=== PATIENT | male | born 1955 | race American Indian/Alaskan Native ===

== ENCOUNTER 2016-04-05 09:03 | Emergency (ER) | payer MEDICARE ==
[2016-04-05 09:14] VITALS: BP 150/86
--- NOTE | 2016-04-05 10:42 | Emergency Department Report ---
[place] [facility] Chief Complaint: Skin/Abscess/Foreign Body Stated Complaint: BOIL ON BUTTUCK Time Seen by Provider: 04/05/16 10:36 History: Yes Pain, Yes Previous History, No Fever, No Purulent Drainage, No Numbness, No Foreign Body Home Medications: Previous Rx's Medication Instructions Recorded Last Taken Type ALBUTEROL Inhaler [ProAir HFA 2 puff IH QID PRN #1 inhalation 07/03/15 Unknown Rx Inhaler] AtorvaSTATin [Lipitor] 40 mg PO QHS #30 tablet 07/03/15 Unknown Rx Clopidogrel [Plavix] 75 mg PO QDAY #30 tablet 07/03/15 04/05/16 Rx Famotidine [Pepcid] 20 mg PO BID #60 tablet 07/03/15 04/05/16 Rx Ipratropium/Albuterol Sulfate 1 ampul IH Q4HR PRN #30 ampul.neb 07/03/15 Unknown Rx [Duoneb 0.5 mg-3 mg/3 ml Soln] Lisinopril [Zestril TAB] 20 mg PO BID #30 tablet 07/03/15 04/05/16 Rx Cephalexin [Keflex] 500 mg PO BID #14 capsule 04/05/16 Unknown Rx metroNIDAZOLE [Flagyl TAB] 500 mg PO Q8HR #21 tablet 04/05/16 Unknown Rx Allergies/Adverse Reactions: Allergies Allergy/AdvReac Type Severity Reaction Status Date / Time aspirin Allergy Unknown Verified 06/10/15 01:08 codeine Allergy Unknown Verified 06/10/15 01:08 Iodinated Contrast Media - Allergy Hives Verified 06/10/15 01:08 IV Dye NSAIDS (Non-Steroidal Allergy Unknown Verified 06/10/15 01:08 Anti-Inflamma ED Review of Systems ROS: Stated complaint: BOIL ON BUTTUCK Other details as noted in HPI ED Past Medical Hx - Past Medical History Previous Medical History?: Yes Hx Hypertension: No Hx Heart Attack/AMI: No Hx Congestive Heart Failure: No Hx Diabetes: No Hx Deep Vein Thrombosis: No Hx Pulmonary Embolism: No Hx Liver Disease: No Hx Renal Disease: No Hx Sickle Cell Disease: No Hx Arthritis: No Hx Seizures: No Hx Kidney Stones: No Hx Asthma: No Hx COPD: Yes Hx Tuberculosis: No Hx Dementia: No Hx HIV: No Additional medical history: ulcers/peptic ulcer disease. rhabdo, high cholesterol, boil, abscess - Surgical History Past Surgical History?: Yes Hx Coronary Stent: No Hx Open Heart Surgery: No Hx Pacemaker: No Hx Internal Defibrillator: No Hx Cholecystectomy: No Hx Appendectomy: No Hx Breast Surgery: No Additional Surgical History: L4-L5 disc replacement - Social History Smoking Status: Former Smoker Substance Use Type: Alcohol, Prescribed - Medications Home Medications: Home Medications Medication Instructions Recorded Confirmed Last Taken Type ALBUTEROL Inhaler [ProAir HFA 2 puff IH QID PRN #1 inhalation 07/03/15 Unknown Rx Inhaler] AtorvaSTATin [Lipitor] 40 mg PO QHS #30 tablet 07/03/15 Unknown Rx Clopidogrel [Plavix] 75 mg PO QDAY #30 tablet 07/03/15 04/05/16 04/05/16 Rx Famotidine [Pepcid] 20 mg PO BID #60 tablet 07/03/15 04/05/16 Rx Ipratropium/Albuterol Sulfate 1 ampul IH Q4HR PRN #30 ampul.neb 07/03/15 Unknown Rx [Duoneb 0.5 mg-3 mg/3 ml Soln] Lisinopril [Zestril TAB] 20 mg PO BID #30 tablet 07/03/15 04/05/16 04/05/16 Rx Cephalexin [Keflex] 500 mg PO BID #14 capsule 04/05/16 Unknown Rx metroNIDAZOLE [Flagyl TAB] 500 mg PO Q8HR #21 tablet 04/05/16 Unknown Rx ED Abscess Boil Physical Exam - Exam General: Vital signs noted. No distress. Alert and acting appropriately. Size: 1 cm Exam: Yes Tenderness, No Fluctuance, No Surrounding Cellulites/Erythema, No Lymphangitis Exam: 1 cm abscess it's non-indurated and very tender non-erythematous located in the cleft of the gluteal. There is no noticeable discharge. ED Course Vital Signs 04/05/16 09:10 Temperature 97.6 F Pulse Rate 72 Blood Pressure 150/86 O2 Sat by Pulse 100 Oximetry Critical care attestation.: If time is entered above; I have spent that time in minutes in the direct care of this critically ill patient, excluding procedure time. ED Medical Decision Making - Medical Decision Making Patient evaluated by this provider in fast track. Upon my exam of this possible abscess it was noted that the abscess lays deep there is no erythematous is non-indurated. Discussed with patient that antibiotics would be the best route at this point. Once he's completed the antibiotics and the abscess has become more fluctuant and we then can drain it. Also recommend patient to either follow-up with surgery for possible marsupialization. She verbalized understanding ED Disposition Clinical Impression: Pilonidal cyst Disposition: DISCHARGED TO HOME OR SELFCARE Is pt being admited?: No Does the pt Need Aspirin: No Condition: Stable Instructions: Cellulitis (ED) Additional Instructions: Complete all antibiotics. Warm hot baths with Epson salt. Follow-up with your primary care provider. Prescriptions: metroNIDAZOLE [Flagyl TAB] 500 mg PO Q8HR #21 tablet Cephalexin [Keflex] 500 mg PO BID #14 capsule Referrals: JACKY COOPER JR, MD [Primary Care Provider] - 3-5 Days LAXMI BETANCOURT MD [Staff Physician] - 3-5 Days Forms: Work/School Release Form(ED)
[2016-04-05] MEDS ORDERED: KEFLEX PO ONE (11:04)
== END 2016-04-05 11:12 | disposition home or self-care (01) ==
LOC: ED 09:03
DX: L05.01 Pilonidal cyst with abscess (principal); J44.9 Chronic obstructive pulmonary disease, unspecified; E78.00 Pure hypercholesterolemia, unspecified; Z87.891 Personal history of nicotine dependence; Z88.6 Allergy status to analgesic agent; Z88.5 Allergy status to narcotic agent; Z88.8 Allergy status to other drugs, medicaments and biological substances
CPT/HCPCS: 99282

== ENCOUNTER 2016-08-01 00:22 | Emergency (ER) | payer MEDICARE ==
[2016-08-01 00:36] VITALS: BP 167/94
[2016-08-01 01:00] LABS: Hematocrit 41.7 % (35.5-45.6); Hemoglobin 13.6 gm/dl (11.8-15.2); Mean Corpuscular HGB Conc 33 % (32-34); Mean Corpuscular Hemoglobin 30 pg (28-32); Mean Corpuscular Volume 92 fl (84-94); Red Blood Count 4.52 M/mm3 (3.65-5.03); Red Cell Distribution Width 14.8 % (13.2-15.2); White Blood Count 5.2 K/mm3 (4.5-11.0)
[2016-08-01 01:04] LABS: Platelet Count 116 K/mm3 (140-440)
[2016-08-01 01:10] LABS: INR 0.98 (0.87-1.13)
[2016-08-01 01:11] LABS: Partial Thromboplastin Time 27.8 Sec. (24.2-36.6)
[2016-08-01 01:17] LABS: Anion Gap 20 mmol/L; Blood Urea Nitrogen 7 mg/dL (9-20); Calcium 8.8 mg/dL (8.4-10.2); Carbon Dioxide 23 mmol/L (22-30); Chloride 101.5 mmol/L (98-107); Glucose 117 mg/dL (75-100); Potassium 3.8 mmol/L (3.6-5.0); Sodium 141 mmol/L (137-145)
[2016-08-01 02:31] LABS: Blastocytes % (Manual) 0 %
[2016-08-01 02:52] LABS: Diff Status Complete; Giant Platelets Few; Large Platelets 1+; Platelet Estimate Appears Decreased
--- NOTE | 2016-08-05 07:23 | ED Elopement Review ---
ED Pt Elopement review - Results review Lab results: Laboratory Tests 08/01/16 08/01/16 08/01/16 00:39 00:39 00:39 WBC 5.2 RBC 4.52 Hgb 13.6 Hct 41.7 MCV 92 MCH 30 MCHC 33 RDW 14.8 Plt Count 116 L Add Manual Diff Complete Total Counted 100 Seg Neutrophils % Project Director Seg Neuts % (Manual) 32.0 L Band Neutrophils % 0 Lymphocytes % (Manual) 48.0 H Reactive Lymphs % (Man) 0 Monocytes % (Manual) 16.0 H Eosinophils % (Manual) 3.0 Basophils % (Manual) 1.0 Metamyelocytes % 0 Myelocytes % 0 Promyelocytes % 0 Blast Cells % 0 Nucleated RBC % Not Reportable Seg Neutrophils # Man 1.7 L Band Neutrophils # 0.0 Lymphocytes # (Manual) 2.5 Abs React Lymphs (Man) 0.0 Monocytes # (Manual) 0.8 Eosinophils # (Manual) 0.2 Basophils # (Manual) 0.1 Metamyelocytes # 0.0 Myelocytes # 0.0 Promyelocytes # 0.0 Blast Cells # 0.0 WBC Morphology Not Reportable Hypersegmented Neuts Not Reportable Hyposegmented Neuts Not Reportable Hypogranular Neuts Not Reportable Smudge Cells Not Reportable Toxic Granulation Not Reportable Toxic Vacuolation Not Reportable Dohle Bodies Not Reportable Pelger-Huet Anomaly Not Reportable Crystal Rods Not Reportable Platelet Estimate Appears decreased Clumped Platelets Not Reportable Plt Clumps, EDTA Not Reportable Large Platelets 1+ Giant Platelets Few Platelet Satelliting Not Reportable Plt Morphology Comment Not Reportable RBC Morphology Not Reportable Dimorphic RBCs Not Reportable Polychromasia Not Reportable Hypochromasia Not Reportable Poikilocytosis Not Reportable Anisocytosis Not Reportable Microcytosis Not Reportable Macrocytosis Not Reportable Spherocytes Not Reportable Pappenheimer Bodies Not Reportable Sickle Cells Not Reportable Target Cells Not Reportable Tear Drop Cells Not Reportable Ovalocytes Not Reportable Helmet Cells Not Reportable Zhang-Turlock Bodies Not Reportable [place] Rings Not Reportable [place] Cells Not Reportable Bite Cells Not Reportable Crenated Cell Not Reportable Elliptocytes Not Reportable Acanthocytes (Spur) Not Reportable Rouleaux Not Reportable Hemoglobin C Crystals Not Reportable Schistocytes Not Reportable Malaria parasites Not Reportable Yonathan Bodies Not Reportable Hem Pathologist Commnt No PT 12.9 INR 0.98 APTT 27.8 VBG pH Sodium 141 Potassium 3.8 Chloride 101.5 Carbon Dioxide 23 Anion Gap 20 BUN 7 L Creatinine 0.7 L Estimated GFR > 60 BUN/Creatinine Ratio 10.00 Glucose 117 H Calcium 8.8 Magnesium Troponin T < 0.010 NT-Pro-B Natriuret Pep 08/01/16 08/01/16 08/01/16 00:39 00:39 00:44 WBC RBC Hgb Hct MCV MCH MCHC RDW Plt Count Add Manual Diff Total Counted Seg Neutrophils % Seg Neuts % (Manual) Band Neutrophils % Lymphocytes % (Manual) Reactive Lymphs % (Man) Monocytes % (Manual) Eosinophils % (Manual) Basophils % (Manual) Metamyelocytes % Myelocytes % Promyelocytes % Blast Cells % Nucleated RBC % Seg Neutrophils # Man Band Neutrophils # Lymphocytes # (Manual) Abs React Lymphs (Man) Monocytes # (Manual) Eosinophils # (Manual) Basophils # (Manual) Metamyelocytes # Myelocytes # Promyelocytes # Blast Cells # WBC Morphology Hypersegmented Neuts Hyposegmented Neuts Hypogranular Neuts Smudge Cells Toxic Granulation Toxic Vacuolation Dohle Bodies Pelger-Huet Anomaly Crystal Rods Platelet Estimate Clumped Platelets Plt Clumps, EDTA Large Platelets Giant Platelets Platelet Satelliting Plt Morphology Comment RBC Morphology Dimorphic RBCs Polychromasia Hypochromasia Poikilocytosis Anisocytosis Microcytosis Macrocytosis Spherocytes Pappenheimer Bodies Sickle Cells Target Cells Tear Drop Cells Ovalocytes Helmet Cells Zhang-Turlock Bodies Clayton Rings Jl Cells Bite Cells Crenated Cell Elliptocytes Acanthocytes (Spur) Rouleaux Hemoglobin C Crystals Schistocytes Malaria parasites Yonathan Bodies Hem Pathologist Commnt PT INR APTT VBG pH 7.448 H Sodium Potassium Chloride Carbon Dioxide Anion Gap BUN Creatinine Estimated GFR BUN/Creatinine Ratio Glucose Calcium Magnesium 2.00 Troponin T NT-Pro-B Natriuret Pep 478.8 - Call Back decision Pt Call Back Decision: No action required
== END 2016-08-01 03:03 | disposition left against medical advice (07) ==
LOC: ED 00:22
DX: R07.9 Chest pain, unspecified (principal); R11.0 Nausea; R51 Headache; Z53.21 Procedure and treatment not carried out due to patient leaving prior to being seen by health care provider
CPT/HCPCS: 36415; 80048; 82805; 83735; 83880; 84484; 85007; 85025; 85610; 85730; 93005; 93010

== ENCOUNTER 2017-07-26 13:32 | Inpatient (IN) | payer MEDICARE ==
--- NOTE | 2017-07-26 13:56 | Cat Scan Report ---
CT HEAD WITHOUT CONTRAST: HISTORY: Neurological deficit. TECHNIQUE: Sequential 2.5mm CT images. COMPARISON: none. FINDINGS: Cerebral Parenchyma: Within normal limits. Cerebellum: Within normal limits. Brainstem: Within normal limits. Ventricles: Normal. Sella: Normal. Extra-axial spaces: Normal. Basal Cisterns: Normal. Intracranial Hemorrhage: None. Midline Shift: None. Calvarium: Normal. Sinuses: Normal. Mastoid Air Cells: Normal. Visualized Orbits: Normal. IMPRESSION: Cranial CT scan within normal limits. These findings were discussed with Dr. Aggarwal in the emergency department at 1347 hrs.
[2017-07-26 14:15] LABS: Basophils % (Auto) 0.4 % (0.0-1.8); Eosinophils % (Auto) 0.4 % (0.0-4.3); Hematocrit 51.2 % (35.5-45.6); Hemoglobin 16.9 gm/dl (11.8-15.2); Lymphocytes % (Auto) 14.3 % (13.4-35.0); Mean Corpuscular HGB Conc 33 % (32-34); Mean Corpuscular Hemoglobin 31 pg (28-32); Mean Corpuscular Volume 95 fl (84-94); Monocytes % (Auto) 7.9 % (0.0-7.3); Platelet Count 77 K/mm3 (140-440); Red Blood Count 5.37 M/mm3 (3.65-5.03)
[2017-07-26] MEDS ORDERED: MORPHINE IV ONE (14:15)
[2017-07-26] MEDS ORDERED: ZOFRAN IV ONE (14:15)
[2017-07-26 14:16] LABS: Lymphocytes # (Auto) 0.9 K/mm3 (1.2-5.4); Monocytes # (Auto) 0.5 K/mm3 (0.0-0.8)
[2017-07-26 14:18] LABS: INR 0.95 (0.87-1.13)
[2017-07-26 14:19] LABS: Partial Thromboplastin Time 24.7 Sec. (24.2-36.6)
[2017-07-26 14:30] LABS: BUN/Creatinine Ratio 6; Blood Urea Nitrogen 4 mg/dL (9-20); Calcium 9.1 mg/dL (8.4-10.2); Hemolysis Index 37
[2017-07-26] MEDS ORDERED: DECADRON IV ONE (14:49)
[2017-07-26] MEDS ORDERED: BENADRYL IV ONE (14:49)
[2017-07-26 15:34] LABS: Alanine Aminotransferase 55 units/L (7-56); Albumin 3.3 g/dL (3.9-5)
[2017-07-26 15:35] LABS: Bilirubin,Direct < 0.2 mg/dL (0-0.2)
--- NOTE | 2017-07-26 15:39 | Cat Scan Report ---
CTA HEAD: HISTORY: Headache, vomiting. TECHNIQUE: Helical CT images after IV contrast with 0.625mm reformations. Sagittal and coronal reformats. Rotational MIP images. 3D volume rendering technique. NASCET criteria were utilized. FINDINGS: The arterial structures of the anterior and posterior circulations are patent throughout. No evidence for stenosis, occlusion or aneurysm. IMPRESSION: Unremarkable CTA head.
--- NOTE | 2017-07-26 15:46 | History and Physical Report ---
History of Present Illness Chief complaint: I feel dizzy, my head hurts History of present illness: 61 YO Male with COPD, PUD, HLD presents to ED for evaluation. Pt states that he has experienced intermittent headaches for the past 2 weeks, with worsening symptoms over the past 2 days. Pt unable to provide further detailed history, but history provided by who is at bedside during exam and interview. As per , the patient awoke from sleep and was weak and confused this morning. Pt was nauseated, and experienced two episodes of vomiting. No reports of fever , chills, CP, Palpitations, Syncope, loss of bowel and bladder continence, unintentional weight loss, night sweats, unilateral leg swelling, calf pain, hemoptysis, individual/family history of DVT/PE. EMS notified, and upon arrival pt found to have symptoms consistent with CVA. Code stroke called, and patient transported to [facility] for further care and evaluation. Pt seen and evaluated in ED and found to have symptoms of CVA. Pt outside therapeutic window for TPA. Pt admitted to telemetry. Past History Past Medical History: COPD, hyperlipidemia, other (PUD) Past Surgical History: Other (Back surgery) Social history: , lives with family. denies: smoking, alcohol abuse, prescription drug abuse Family history: hypertension Medications and Allergies Allergies Allergy/AdvReac Type Severity Reaction Status Date / Time aspirin Allergy Unknown Verified 06/10/15 01:08 codeine Allergy Unknown Verified 06/10/15 01:08 Iodinated Contrast- Oral and Allergy Hives Verified 06/10/15 01:08 IV Dye NSAIDS (Non-Steroidal Allergy Unknown Verified 06/10/15 01:08 Anti-Inflamma Home Medications Medication Instructions Recorded Confirmed Last Taken Type Famotidine [Pepcid] 20 mg PO BID #60 tablet 07/03/15 04/05/16 Rx Lisinopril [Zestril TAB] 20 mg PO BID #30 tablet 07/03/15 04/05/16 04/05/16 Rx Metoprolol Tartrate 25 mg PO BID 07/26/17 07/26/17 07/26/17 History Review of Systems Constitutional: weakness, other (headache,dizziness, blurred vision), no weight loss, no weight gain, no fever, no chills Ears, nose, mouth and throat: no ear pain, no ear discharge, no tinnitis, no decreased hearing, no nose pain, no nasal congestion Cardiovascular: no chest pain, no orthopnea, no palpitations, no rapid/ irregular heart beat, no edema, no syncope Respiratory: no cough, no cough with sputum, no excessive sputum, no hemoptysis , no shortness of breath Gastrointestinal: nausea, vomiting, no change in bowel habits, no hematemesis, no coffee ground emesis, no BRBPR, no melena, no hematochezia, no loss of appetite, no early satiety Genitourinary Male: no hematuria, no flank pain, no discharge, no urinary frequency, no urinary hesitancy Rectal: no pain, no incontinence, no bleeding Musculoskeletal: no neck stiffness, no neck pain, no shooting arm pain, no arm numbness/tingling, no low back pain Integumentary: no rash, no pruritis, no redness, no sores, no wounds, no jaundice Neurological: no head injury, no transient paralysis, no paralysis, no weakness , no parathesias, no numbness, no tingling, no seizures Psychiatric: no anxiety, no memory loss, no change in sleep habits, no sleep disturbances, no insomnia, no hypersomnia, no change in appetite, no change in libido Endocrine: no cold intolerance, no heat intolerance, no polyphagia, no excessive thirst, no polydipsia, no polyuria, no nocturia Hematologic/Lymphatic: no easy bruising, no easy bleeding, no lymphadenopathy, no lymphedema Allergic/Immunologic: no urticaria, no allergic rhinitis, no wheezing, no persistent infections, no anaphylaxis Exam - Constitutional Vitals: Temp Pulse Resp BP Pulse Ox 98.2 F 97 H 18 155/82 98 07/26/17 14:27 07/26/17 14:27 07/26/17 14:55 07/26/17 14:27 07/26/17 14:28 General appearance: Present: mild distress - EENT Eyes: Present: PERRL ENT: hearing intact, clear oral mucosa - Neck Neck: Present: supple, normal ROM - Respiratory Respiratory effort: labored Respiratory: bilateral: diminished, rhonchi - Cardiovascular Heart Sounds: Present: S1 & S2. Absent: rub, click - Extremities Extremities: pulses symmetrical, No edema Peripheral Pulses: within normal limits - Abdominal General gastrointestinal: Present: soft, non-tender, non-distended, normal bowel sounds Male genitourinary: Present: normal - Integumentary Integumentary: Present: clear, warm, dry - Musculoskeletal Musculoskeletal: generalized weakness - Psychiatric Psychiatric: appropriate mood/affect, intact judgment & insight - Neurologic Neurologic: CNII-XII intact, moves all extremities, no gait normal Results - Labs CBC & Chem 7: 07/26/17 13:53 07/26/17 13:53 Labs: Abnormal lab results 07/26/17 07/26/17 07/26/17 Range/Units 13:53 13:53 14:47 RBC 5.37 H (3.65-5.03) M/mm3 Hgb 16.9 H (11.8-15.2) gm/dl Hct 51.2 H (35.5-45.6) % MCV 95 H (84-94) fl RDW 13.0 L (13.2-15.2) % Plt Count 77 L (140-440) K/mm3 [place] % (Auto) 7.9 H (0.0-7.3) % Lymph # 0.9 L (1.2-5.4) K/mm3 Seg Neutrophils % 77.0 H (40.0-70.0) % Carbon Dioxide 20 L (22-30) mmol/L BUN 4 L (9-20) mg/dL Creatinine 0.7 L (0.8-1.5) mg/dL Glucose 107 H (75-100) mg/dL AST 70 H (5-40) units/L Albumin 3.3 L (3.9-5) g/dL Assessment and Plan - Patient Problems (1) CVA (cerebral vascular accident) Current Visit: Yes Status: Acute Qualifiers: Precerebral and cerebral artery: other cerebral artery Plan to address problem: Stroke protocol: CT head, CTA Brain, MRI Brain, MRA Brain, Neuro checks,Carotid Doppler, EEG, Echo, PT/OT/Speech Therapy. Will also check PSA level (2) Encephalopathy Current Visit: Yes Status: Acute Plan to address problem: Hypertensive Encephalopathy: CT Head, Neuro checks, BMP, monitor bp q shift, (3) Hypertensive urgency Current Visit: Yes Status: Acute Plan to address problem: Monitor BP q shift, permissive hypertension overnight. IV hydralazine prn (4) DVT prophylaxis Current Visit: No Status: Acute Plan to address problem: SCD to BLE while in bed,
[2017-07-26] MEDS ORDERED: PHENERGAN PR PRN (15:47)
[2017-07-26] MEDS ORDERED: TYLENOL PO PRN (15:47)
[2017-07-26] MEDS ORDERED: REGLAN PO PRN (15:47)
[2017-07-26] MEDS ORDERED: DULCOLAX PR PRN (15:47)
[2017-07-26] MEDS ORDERED: MILK OF MAGNESIA PO PRN (15:47)
[2017-07-26] MEDS ORDERED: SODIUM CHLORIDE FLUSH SYRINGE 10 ML IV PRN (15:47)
[2017-07-26] MEDS ORDERED: ZOFRAN IV PRN (15:47)
[2017-07-26] MEDS ORDERED: DUONEB *Not for PRN Use IH (15:49)
[2017-07-26] MEDS ORDERED: PROAIR IH PRN (15:49)
--- NOTE | 2017-07-26 15:55 | Emergency Department Report ---
ED General Adult HPI - General Chief complaint: Headache Stated complaint: POSSIBLE CVA Time Seen by Provider: 07/26/17 14:12 Source: patient, EMS Mode of arrival: Ambulatory Limitations: No Limitations - History of Present Illness Initial comments: This is a 61-year-old male who states he's had severe headaches for the past 2 weeks. Approximately one week ago he states he saw his family physician who "didn't find anything wrong". The patient was not prescribed anything per se for headaches he states. He has not really been taking anything over-the- counter. He vomited twice earlier today and had a recurrent headache which was 10 out of 10 and he called EMS. -: Gradual, week(s) Location: head Radiation: non-radiation Quality: aching Consistency: intermittent Improves with: none Worsens with: none Associated Symptoms: nausea/vomiting Treatments Prior to Arrival: none - Related Data Previous Rx's Medication Instructions Recorded Last Taken Type ALBUTEROL Inhaler [ProAir HFA 2 puff IH QID PRN #1 inhalation 07/03/15 Unknown Rx Inhaler] AtorvaSTATin [Lipitor] 40 mg PO QHS #30 tablet 07/03/15 Unknown Rx Clopidogrel [Plavix] 75 mg PO QDAY #30 tablet 07/03/15 04/05/16 Rx Famotidine [Pepcid] 20 mg PO BID #60 tablet 07/03/15 04/05/16 Rx Ipratropium/Albuterol Sulfate 1 ampul IH Q4HR PRN #30 ampul.neb 07/03/15 Unknown Rx [DUONEB *Not for PRN Use*] Lisinopril [Zestril TAB] 20 mg PO BID #30 tablet 07/03/15 04/05/16 Rx Cephalexin [Keflex] 500 mg PO BID #14 capsule 04/05/16 Unknown Rx metroNIDAZOLE [Flagyl TAB] 500 mg PO Q8HR #21 tablet 04/05/16 Unknown Rx Allergies Allergy/AdvReac Type Severity Reaction Status Date / Time aspirin Allergy Unknown Verified 06/10/15 01:08 codeine Allergy Unknown Verified 06/10/15 01:08 Iodinated Contrast- Oral and Allergy Hives Verified 06/10/15 01:08 IV Dye NSAIDS (Non-Steroidal Allergy Unknown Verified 06/10/15 01:08 Anti-Inflamma ED Review of Systems ROS: Stated complaint: POSSIBLE CVA Other details as noted in HPI Constitutional: denies: chills, fever Eyes: denies: eye pain, eye discharge, vision change ENT: denies: ear pain, throat pain Respiratory: denies: cough, shortness of breath, wheezing Cardiovascular: denies: chest pain, palpitations Endocrine: no symptoms reported Gastrointestinal: denies: abdominal pain, nausea, diarrhea Genitourinary: denies: urgency, dysuria Musculoskeletal: denies: back pain, joint swelling, arthralgia Skin: denies: rash, lesions Neurological: headache. denies: weakness, numbness, paresthesias Psychiatric: denies: anxiety, depression Hematological/Lymphatic: denies: easy bleeding, easy bruising ED Past Medical Hx - Past Medical History Hx Hypertension: No Hx Heart Attack/AMI: No Hx Congestive Heart Failure: No Hx Diabetes: No Hx Deep Vein Thrombosis: No Hx Pulmonary Embolism: No Hx Liver Disease: No Hx Renal Disease: No Hx Sickle Cell Disease: No Hx Arthritis: No Hx Seizures: No Hx Kidney Stones: No Hx Asthma: No Hx COPD: Yes Hx Tuberculosis: No Hx Dementia: No Hx HIV: No Additional medical history: ulcers/peptic ulcer disease. rhabdo, high cholesterol, boil, abscess - Surgical History Hx Coronary Stent: No Hx Open Heart Surgery: No Hx Pacemaker: No Hx Internal Defibrillator: No Hx Cholecystectomy: No Hx Appendectomy: No Hx Breast Surgery: No Additional Surgical History: L4-L5 disc replacement - Social History Smoking Status: Unknown if ever smoked - Medications Home Medications: Home Medications Medication Instructions Recorded Confirmed Last Taken Type ALBUTEROL Inhaler [ProAir HFA 2 puff IH QID PRN #1 inhalation 07/03/15 Unknown Rx Inhaler] AtorvaSTATin [Lipitor] 40 mg PO QHS #30 tablet 07/03/15 Unknown Rx Clopidogrel [Plavix] 75 mg PO QDAY #30 tablet 07/03/15 04/05/16 04/05/16 Rx Famotidine [Pepcid] 20 mg PO BID #60 tablet 07/03/15 04/05/16 Rx Ipratropium/Albuterol Sulfate 1 ampul IH Q4HR PRN #30 ampul.neb 07/03/15 Unknown Rx [DUONEB *Not for PRN Use*] Lisinopril [Zestril TAB] 20 mg PO BID #30 tablet 07/03/15 04/05/16 04/05/16 Rx Cephalexin [Keflex] 500 mg PO BID #14 capsule 04/05/16 Unknown Rx metroNIDAZOLE [Flagyl TAB] 500 mg PO Q8HR #21 tablet 04/05/16 Unknown Rx ED Physical Exam - General Limitations: No Limitations ED Course Vital Signs 07/26/17 07/26/17 07/26/17 14:04 14:27 14:28 Temperature 97.6 F 98.2 F Pulse Rate 92 H 97 H Respiratory 16 18 18 Rate Blood Pressure 92/51 155/82 [Left] O2 Sat by Pulse 100 98 98 Oximetry 07/26/17 14:55 Temperature Pulse Rate Respiratory 18 Rate Blood Pressure [Left] O2 Sat by Pulse Oximetry - Reevaluation(s) Reevaluation #1: Patient with improvement of his headache with analgesia given. CTA was negative. Case was referred to Dr. Santos. The patient has had some labile blood pressure here. Dr. Santos will discuss whether or not the patient would like to be admitted for further management of his blood pressure and severe headaches. 07/26/17 16:03 ED Medical Decision Making - Lab Data Result diagrams: 07/26/17 13:53 07/26/17 13:53 Laboratory Results - last 24 hr 07/26/17 07/26/17 07/26/17 13:40 13:53 13:53 WBC 6.5 RBC 5.37 H Hgb 16.9 H Hct 51.2 H MCV 95 H MCH 31 MCHC 33 RDW 13.0 L Plt Count 77 L Lymph % (Auto) 14.3 Johnson % (Auto) 7.9 H Eos % (Auto) 0.4 Baso % (Auto) 0.4 Lymph # 0.9 L Johnson # 0.5 Eos # 0.0 Baso # 0.0 Seg Neutrophils % 77.0 H Seg Neutrophils # 5.0 ESR PT 13.1 INR 0.95 APTT 24.7 Thrombin Time Sodium Potassium Chloride Carbon Dioxide Anion Gap BUN Creatinine Estimated GFR BUN/Creatinine Ratio Glucose POC Glucose 105 Calcium Magnesium Total Bilirubin Direct Bilirubin AST ALT Alkaline Phosphatase Troponin T Total Protein Albumin Albumin/Globulin Ratio 07/26/17 07/26/17 07/26/17 13:53 13:53 13:53 WBC RBC Hgb Hct MCV MCH MCHC RDW Plt Count Lymph % (Auto) Johnson % (Auto) Eos % (Auto) Baso % (Auto) Lymph # Johnson # Eos # Baso # Seg Neutrophils % Seg Neutrophils # ESR PT INR APTT Thrombin Time 18.6 Sodium 137 Potassium 4.6 Chloride 101.6 Carbon Dioxide 20 L Anion Gap 20 BUN 4 L Creatinine 0.7 L Estimated GFR > 60 BUN/Creatinine Ratio 6 Glucose 107 H POC Glucose Calcium 9.1 Magnesium 2.00 Total Bilirubin Direct Bilirubin AST ALT Alkaline Phosphatase Troponin T < 0.010 Total Protein Albumin Albumin/Globulin Ratio 07/26/17 07/26/17 14:47 14:47 WBC RBC Hgb Hct MCV MCH MCHC RDW Plt Count Lymph % (Auto) Johnson % (Auto) Eos % (Auto) Baso % (Auto) Lymph # Johnson # Eos # Baso # Seg Neutrophils % Seg Neutrophils # ESR 7 PT INR APTT Thrombin Time Sodium Potassium Chloride Carbon Dioxide Anion Gap BUN Creatinine Estimated GFR BUN/Creatinine Ratio Glucose POC Glucose Calcium Magnesium Total Bilirubin 0.60 Direct Bilirubin < 0.2 AST 70 H ALT 55 Alkaline Phosphatase 64 Troponin T Total Protein 6.4 Albumin 3.3 L Albumin/Globulin Ratio 1.1 - Radiology Data Radiology results: report reviewed (CT the head and CTA of the head no acute process) Critical care attestation.: If time is entered above; I have spent that time in minutes in the direct care of this critically ill patient, excluding procedure time. ED Disposition Clinical Impression: Essential hypertension Cephalalgia Qualifiers: Headache type: unspecified Headache chronicity pattern: acute headache Intractability: not intractable Qualified Code(s): R51 - Headache Disposition: OP ADMIT IP TO THIS HOSP Is pt being admited?: Yes Does the pt Need Aspirin: Yes Condition: Stable Instructions: Hypertension (ED) Referrals: KAUSHIK MARK MD [Primary Care Provider] - 3-5 Days Time of Disposition: 16:05
[2017-07-26] MEDS ORDERED: PROVENTIL IH PRN (17:54)
[2017-07-26 18:54] LABS: Bacteria,Urine 1+ /HPF (Negative); Bilirubin,Urine NEG (Negative); Blood,Urine NEG (Negative); Color,Urine Yellow (Yellow); Mucus,Urine FEW /HPF; Protein,Urine <15 mg/dL mg/dL (Negative); Urobilinogen,Urine < 2.0 mg/dL (<2.0); WBC,Urine < 1.0 /HPF (0.0-6.0)
[2017-07-26 19:02] LABS: Amphetamine Screen,Urine PRESUMPTIVE NEGATIVE; Benzodiazepines Screen,Urine PRESUMPTIVE NEGATIVE; Cocaine Screen,Urine PRESUMPTIVE NEGATIVE; Methadone Screen,Urine PRESUMPTIVE NEGATIVE
[2017-07-26 19:14] LABS: Cannabinoid Screen,Urine PRESUMPTIVE POSITIVE; Opiate Screen,Urine PRESUMPTIVE POSITIVE
[2017-07-26] MEDS: PEPCID PO SCH (21:54)
[2017-07-26] MEDS: ZOFRAN IV PRN (23:55)
[2017-07-26] MEDS: MORPHINE IV PRN (23:56)
[2017-07-27] MEDS: MORPHINE IV PRN (06:12)
[2017-07-27] MEDS: ZOFRAN IV PRN (06:13)
[2017-07-27 07:32] LABS: Chol/HDL Ratio 2.1 %
[2017-07-27] MEDS ORDERED: PLAVIX PO SCH (10:00)
--- NOTE | 2017-07-27 10:16 | Progress Note ---
Hospitalist Physical - Constitutional Vitals: Temp Pulse Resp BP Pulse Ox 97.9 F 63 18 130/63 96 07/27/17 08:20 07/27/17 08:20 07/27/17 08:20 07/27/17 08:20 07/27/17 08:20 General appearance: Present: mild distress Results - Labs CBC & Chem 7: 07/26/17 13:53 07/26/17 13:53 Labs: Laboratory Last Values WBC 6.5 K/mm3 (4.5-11.0) 07/26/17 13:53 RBC 5.37 M/mm3 (3.65-5.03) H 07/26/17 13:53 Hgb 16.9 gm/dl (11.8-15.2) H 07/26/17 13:53 Hct 51.2 % (35.5-45.6) H 07/26/17 13:53 MCV 95 fl (84-94) H 07/26/17 13:53 MCH 31 pg (28-32) 07/26/17 13:53 MCHC 33 % (32-34) 07/26/17 13:53 RDW 13.0 % (13.2-15.2) L 07/26/17 13:53 Plt Count 77 K/mm3 (140-440) L 07/26/17 13:53 Lymph % (Auto) 14.3 % (13.4-35.0) 07/26/17 13:53 [place] % (Auto) 7.9 % (0.0-7.3) H 07/26/17 13:53 Eos % (Auto) 0.4 % (0.0-4.3) 07/26/17 13:53 Baso % (Auto) 0.4 % (0.0-1.8) 07/26/17 13:53 Lymph # 0.9 K/mm3 (1.2-5.4) L 07/26/17 13:53 [place] # 0.5 K/mm3 (0.0-0.8) 07/26/17 13:53 Eos # 0.0 K/mm3 (0.0-0.4) 07/26/17 13:53 Baso # 0.0 K/mm3 (0.0-0.1) 07/26/17 13:53 Seg Neutrophils % 77.0 % (40.0-70.0) H 07/26/17 13:53 Seg Neutrophils # 5.0 K/mm3 (1.8-7.7) 07/26/17 13:53 ESR 7 mm/Hr (0-20) 07/26/17 14:47 PT 13.1 Sec. (12.2-14.9) 07/26/17 13:53 INR 0.95 (0.87-1.13) 07/26/17 13:53 APTT 24.7 Sec. (24.2-36.6) 07/26/17 13:53 Thrombin Time 18.6 Sec. (15.1-19.6) 07/26/17 13:53 Sodium 137 mmol/L (137-145) 07/26/17 13:53 Potassium 4.6 mmol/L (3.6-5.0) 07/26/17 13:53 Chloride 101.6 mmol/L (98-107) 07/26/17 13:53 Carbon Dioxide 20 mmol/L (22-30) L 07/26/17 13:53 Anion Gap 20 mmol/L 07/26/17 13:53 BUN 4 mg/dL (9-20) L 07/26/17 13:53 Creatinine 0.7 mg/dL (0.8-1.5) L 07/26/17 13:53 Estimated GFR > 60 ml/min 07/26/17 13:53 BUN/Creatinine Ratio 6 % 07/26/17 13:53 Glucose 107 mg/dL (75-100) H 07/26/17 13:53 POC Glucose 105 (70-105) 07/26/17 13:40 Calcium 9.1 mg/dL (8.4-10.2) 07/26/17 13:53 Magnesium 2.00 mg/dL (1.7-2.3) 07/26/17 13:53 Total Bilirubin 0.60 mg/dL (0.1-1.2) 07/26/17 14:47 Direct Bilirubin < 0.2 mg/dL (0-0.2) 07/26/17 14:47 AST 70 units/L (5-40) H 07/26/17 14:47 ALT 55 units/L (7-56) 07/26/17 14:47 Alkaline Phosphatase 64 units/L (35-129) 07/26/17 14:47 Troponin T < 0.010 ng/mL (0.00-0.029) 07/26/17 13:53 Total Protein 6.4 g/dL (6.3-8.2) 07/26/17 14:47 Albumin 3.3 g/dL (3.9-5) L 07/26/17 14:47 Albumin/Globulin Ratio 1.1 % 07/26/17 14:47 Triglycerides 47 mg/dL (2-149) 07/27/17 06:51 Cholesterol 187 mg/dL (50-199) 07/27/17 06:51 LDL Cholesterol Direct 109 mg/dL (50-130) 07/27/17 06:51 HDL Cholesterol 89 mg/dL (40-59) H 07/27/17 06:51 Cholesterol/HDL Ratio 2.10 % 07/27/17 06:51 Prostate Specific Ag 0.65 ng/mL (0.00-4.00) 07/26/17 14:47 Urine Color Yellow (Yellow) 07/26/17 18:39 Urine Turbidity Clear (Clear) 07/26/17 18:39 Urine pH 8.0 (5.0-7.0) H 07/26/17 18:39 Ur Specific [place] 1.049 (1.003-1.030) H 07/26/17 18:39 Urine Protein <15 mg/dl mg/dL (Negative) 07/26/17 18:39 Urine Glucose (UA) Neg mg/dL (Negative) 07/26/17 18:39 Urine Ketones Neg mg/dL (Negative) 07/26/17 18:39 Urine Blood Neg (Negative) 07/26/17 18:39 Urine Nitrite Neg (Negative) 07/26/17 18:39 Urine Bilirubin Neg (Negative) 07/26/17 18:39 Urine Urobilinogen < 2.0 mg/dL (<2.0) 07/26/17 18:39 Ur Leukocyte Esterase Neg (Negative) 07/26/17 18:39 Urine WBC (Auto) < 1.0 /HPF (0.0-6.0) 07/26/17 18:39 Urine RBC (Auto) 1.0 /HPF (0.0-6.0) 07/26/17 18:39 U Epithel Cells (Auto) < 1.0 /HPF (0-13.0) 07/26/17 18:39 Urine Bacteria (Auto) 1+ /HPF (Negative) 07/26/17 18:39 Urine Mucus Few /HPF 07/26/17 18:39 Urine Opiates Screen Presumptive positive 07/26/17 18:39 Urine Methadone Screen Presumptive negative 07/26/17 18:39 Ur Barbiturates Screen Presumptive negative 07/26/17 18:39 Ur Phencyclidine Scrn Presumptive negative 07/26/17 18:39 Ur Amphetamines Screen Presumptive negative 07/26/17 18:39 U Benzodiazepines Scrn Presumptive negative 07/26/17 18:39 Urine Cocaine Screen Presumptive negative 07/26/17 18:39 U Marijuana (THC) Screen Presumptive positive 07/26/17 18:39 Drugs of Abuse Note Disclamer 07/26/17 18:39
--- NOTE | 2017-07-27 10:57 | Magnetic Resonance Report ---
MRI OF THE BRAIN WITHOUT CONTRAST: HISTORY: CVA COMPARISON: CT head dated 07/26/17. PROCEDURE: Multiplanar, multisequence MR imaging of the brain without IV contrast was performed. FINDINGS: The brain parenchyma signal intensity and its west white interface are within normal limits on all sequences. No evidence for acute ischemia, hemorrhage or mass. No chronic infarct or extra-axial fluid collection. The midline structures are central. The basal cisterns are patent. Normal ventricular size. The orbital cavities and sella turcica demonstrate no abnormality. The visualized paranasal sinuses and mastoid air cells are well aerated. IMPRESSION: Unremarkable non-enhanced MRI of the brain.
--- NOTE | 2017-07-27 10:58 | Magnetic Resonance Report ---
MRA HEAD WITHOUT CONTRAST HISTORY: Stroke. [id number] imaging with MIP reformations of the hopi of Adames is submitted. NASCET criteria were utilized. The arteries appear widely patent and free of hemodynamically significant stenosis, aneurysm or dissection. IMPRESSION: Unremarkable MRA head.
[2017-07-27 12:16] VITALS: BP 134/78
--- NOTE | 2017-07-27 14:40 | Discharge Summary ---
<WILDER CALVO - Last Filed: 07/27/17 14:35> Providers - Providers Date of Admission: 07/26/17 15:47 Attending physician: MARISELA TRIPATHI 07/26/17 15:47 Occupational Therapy Evaluate and Treat [CONS] Routine Comment: Reason For Exam: Neuro deficits Physical Therapy Evaluation and Treat [CONS] Routine Comment: Reason For Exam: Neuro deficits Primary care physician: KAUSHIK MARK Hospitalization Condition: Stable Hospital course: Admission HPI 61 YO Male with COPD, PUD, HLD presented to ED with complaints of intermittent headaches for the past 2 weeks, with worsening symptoms 2 days prior to admission Patient underwent stroke workup-head MRA, brain MRI, head CTA and head CT were all negative. Carotid Doppler showed <50% STENOSIS NOTED BILAT BY DOPPLER VELOCITIES. BILAT ANTEG. VERT FLOWS. Patient's symptoms likely associated with TIA. Patient initiated on aspirin therapy and will continue statin therapy. Patient's symptoms have resolved and he is clinically stable for discharge. He will follow up with his PCP within 1 week of discharge. Discharge Diagnoses TIA Encephalopathy Hypertension DVT prophylaxis Disposition: DC-01 TO HOME OR SELFCARE Time spent for discharge: 32 minutes Core Measure Documentation - Palliative Care Palliative Care/ Comfort Measures: Not Applicable - Core Measures Any of the following diagnoses?: none Exam - Constitutional Vitals: Temp Pulse Resp BP Pulse Ox 97.8 F 75 18 134/78 99 07/27/17 11:57 07/27/17 11:57 07/27/17 11:57 07/27/17 11:57 07/27/17 11:57 General appearance: Present: no acute distress, well-nourished - EENT Eyes: Present: PERRL ENT: hearing intact, clear oral mucosa - Neck Neck: Present: supple, normal ROM - Respiratory Respiratory effort: normal Respiratory: bilateral: CTA - Cardiovascular Heart Sounds: Present: S1 & S2. Absent: rub, click - Extremities Extremities: pulses symmetrical, No edema Peripheral Pulses: within normal limits - Abdominal General gastrointestinal: Present: soft, non-tender, non-distended, normal bowel sounds - Integumentary Integumentary: Present: clear, warm, dry - Musculoskeletal Musculoskeletal: gait normal, strength equal bilaterally - Psychiatric Psychiatric: appropriate mood/affect, intact judgment & insight - Neurologic Neurologic: CNII-XII intact, moves all extremities Plan Diet: low fat, low cholesterol, low salt Follow up with: KAUSHIK MARK MD [Primary Care Provider] - 3-5 Days Forms: Accompanied Note <MARISELA TRIPATHI - Last Filed: 07/27/17 18:16> Providers - Providers Date of Admission: 07/26/17 15:47 Date of discharge: 07/27/17 Attending physician: MARISELA TRIPATHI 07/26/17 15:47 Occupational Therapy Evaluate and Treat [CONS] Routine Comment: Reason For Exam: Neuro deficits Physical Therapy Evaluation and Treat [CONS] Routine Comment: Reason For Exam: Neuro deficits Primary care physician: KAUSHIK MARK Hospitalization Hospital course: I saw and evaluated the patient. I agree with the findings and the plan of care as documented in the Nurse Practitioner's~note, with the following corrections and additions. Patient was admitted with headache, and neurological symptoms Admitted and had extensive neuro workup Not a candidate for TPA CT head without contrast CTA head MRI MRA,Carotid Doppler studies are negative Acute CVA was ruled out Possible TIA Today patient is hemodynamically stable Already on antiplatelets and statins Neurological symptoms completely resolved Discharge the patient and follow with PCP in one week Patient is stable at DC Exam - Constitutional Vitals: Temp Pulse Resp BP Pulse Ox 97.8 F 75 18 134/78 99 07/27/17 11:57 07/27/17 11:57 07/27/17 11:57 07/27/17 11:57 07/27/17 11:57
[2017-07-27] MEDS: PEPCID PO SCH (15:55)
== END 2017-07-27 17:48 | disposition home or self-care (01) | DRG 304 ==
LOC: ED 13:32 → 4A 15:47
PROVIDERS: ADMIT Internal Medicine; ATTEND Internal Medicine
DX: I16.0 Hypertensive urgency (principal); G93.40 Encephalopathy, unspecified; G45.9 Transient cerebral ischemic attack, unspecified; M62.82 Rhabdomyolysis; R55 Syncope and collapse; E78.5 Hyperlipidemia, unspecified; J44.9 Chronic obstructive pulmonary disease, unspecified; Z87.11 Personal history of peptic ulcer disease; Z86.718 Personal history of other venous thrombosis and embolism; Z88.5 Allergy status to narcotic agent; Z88.8 Allergy status to other drugs, medicaments and biological substances; Z91.041 Radiographic dye allergy status
CPT/HCPCS: 36415; 70450; 70496; 70544; 70551; 80048; 80061; 80074; 80307; 81001; 82962; 83735; 84153; 84484; 85025; 85610; 85652; 85670; 85730; 93005; 93010; 93306; 93880; 96374; 96375; A9270-GY; J1100; J1200; J2270; J2405; Q9967

== ENCOUNTER 2017-09-21 10:22 | Emergency (ER) | payer MEDICARE ==
[2017-09-21 12:01] LABS: Hematocrit 54.6 % (35.5-45.6); Hemoglobin 18.1 gm/dl (11.8-15.2); Mean Corpuscular HGB Conc 33 % (32-34); Mean Corpuscular Hemoglobin 32 pg (28-32); Mean Corpuscular Volume 97 fl (84-94); Red Blood Count 5.61 M/mm3 (3.65-5.03)
[2017-09-21 12:02] LABS: Basophils % (Auto) 0.3 % (0.0-1.8); Eosinophils % (Auto) 0.2 % (0.0-4.3); Lymphocytes # (Auto) 0.7 K/mm3 (1.2-5.4); Lymphocytes % (Auto) 7.4 % (13.4-35.0); Monocytes # (Auto) 0.5 K/mm3 (0.0-0.8); Monocytes % (Auto) 5.6 % (0.0-7.3)
[2017-09-21 12:24] LABS: BUN/Creatinine Ratio 13; Blood Urea Nitrogen 10 mg/dL (9-20); Calcium 9.9 mg/dL (8.4-10.2); Hemolysis Index 15
[2017-09-21 12:44] LABS: Platelet Count 71 K/mm3 (140-440)
--- NOTE | 2017-09-21 14:44 | Emergency Department Report ---
ED General Adult HPI - General Chief complaint: Chest Pain Stated complaint: CHEST PAIN Time Seen by Provider: 09/21/17 14:22 Source: patient Mode of arrival: Ambulatory Limitations: No Limitations - History of Present Illness Initial comments: Patient complains of pleuritic chest plan we started yesterday. He said he also has soft throat. He says hives when he coughs. Patient said he cannot take aspirin because it holt his stomach. -: days(s) (2) Location: chest Radiation: non-radiation Severity scale (0 -10): 5 Quality: sharp Consistency: intermittent Improves with: none Worsens with: other (cough) Associated Symptoms: chest pain Treatments Prior to Arrival: none - Related Data Home Medications Medication Instructions Recorded Confirmed Last Taken Metoprolol Tartrate 25 mg PO BID 07/26/17 09/21/17 09/21/17 Lisinopril [Zestril TAB] 20 mg PO QDAY 09/21/17 09/21/17 09/21/17 Previous Rx's Medication Instructions Recorded Last Taken Type Famotidine [Pepcid] 20 mg PO BID #60 tablet 07/03/15 09/21/17 Rx Allergies Allergy/AdvReac Type Severity Reaction Status Date / Time aspirin Allergy Unknown Verified 09/21/17 10:35 codeine Allergy Unknown Verified 09/21/17 10:35 Iodinated Contrast- Oral and Allergy Hives Verified 09/21/17 10:35 IV Dye NSAIDS (Non-Steroidal Allergy Unknown Verified 09/21/17 10:35 Anti-Inflamma ED Review of Systems ROS: Stated complaint: CHEST PAIN Other details as noted in HPI Comment: All other systems reviewed and negative Constitutional: denies: chills, fever Eyes: denies: eye pain, eye discharge ENT: denies: ear pain Respiratory: cough. denies: shortness of breath Cardiovascular: chest pain. denies: palpitations, edema Endocrine: no symptoms reported Gastrointestinal: denies: abdominal pain, nausea, vomiting, diarrhea Genitourinary: denies: urgency, frequency Musculoskeletal: denies: back pain, joint swelling Skin: denies: rash, change in color Neurological: denies: headache, weakness, numbness Psychiatric: denies: anxiety, depression Hematological/Lymphatic: denies: easy bleeding, easy bruising ED Past Medical Hx - Past Medical History Hx Hypertension: Yes Hx Heart Attack/AMI: Yes Hx Congestive Heart Failure: No Hx Diabetes: No Hx Deep Vein Thrombosis: No Hx Pulmonary Embolism: No Hx Liver Disease: No Hx Renal Disease: No Hx Sickle Cell Disease: No Hx Arthritis: No Hx Seizures: No Hx Kidney Stones: No Hx Asthma: No Hx COPD: Yes Hx Tuberculosis: No Hx Dementia: No Hx HIV: No Additional medical history: ulcers/peptic ulcer disease. rhabdo, high cholesterol, boil, abscess - Surgical History Past Surgical History?: Yes Hx Coronary Stent: No Hx Open Heart Surgery: No Hx Pacemaker: No Hx Internal Defibrillator: No Hx Cholecystectomy: No Hx Appendectomy: No Hx Breast Surgery: No Additional Surgical History: L4-L5 disc replacement - Social History Smoking Status: Former Smoker Substance Use Type: Alcohol - Medications Home Medications: Home Medications Medication Instructions Recorded Confirmed Last Taken Type Famotidine [Pepcid] 20 mg PO BID #60 tablet 07/03/15 09/21/17 09/21/17 Rx Metoprolol Tartrate 25 mg PO BID 07/26/17 09/21/17 09/21/17 History Lisinopril [Zestril TAB] 20 mg PO QDAY 09/21/17 09/21/17 09/21/17 History ED Physical Exam - General Limitations: No Limitations General appearance: alert, in no apparent distress - Head Head exam: Present: atraumatic, normocephalic, normal inspection - Eye Eye exam: Present: normal appearance, PERRL, EOMI Pupils: Present: normal accommodation - ENT ENT exam: Present: normal exam, normal orophraynx, mucous membranes moist - Neck Neck exam: Present: normal inspection, full ROM. Absent: tenderness - Respiratory Respiratory exam: Present: normal lung sounds bilaterally. Absent: respiratory distress, wheezes, rhonchi - GI/Abdominal GI/Abdominal exam: Present: soft, normal bowel sounds. Absent: distended, tenderness, guarding, rebound - Extremities Exam Extremities exam: Present: normal inspection, full ROM, normal capillary refill - Back Exam Back exam: Present: normal inspection, full ROM - Neurological Exam Neurological exam: Present: alert, oriented X3, CN II-XII intact - Psychiatric Psychiatric exam: Present: normal affect, normal mood - Skin Skin exam: Present: warm, dry, intact, normal color ED Course Vital Signs 09/21/17 09/21/17 09/21/17 10:35 14:23 14:25 Temperature 98.5 F 98.1 F Pulse Rate 87 87 Respiratory 18 15 15 Rate Blood Pressure 133/83 Blood Pressure 126/75 [Left] O2 Sat by Pulse 98 97 97 Oximetry 09/21/17 09/21/17 09/21/17 18:00 19:02 21:20 Temperature 98.2 F Pulse Rate 82 91 H 95 H Respiratory 15 14 16 Rate Blood Pressure Blood Pressure 142/72 136/71 159/80 [Left] O2 Sat by Pulse 100 100 98 Oximetry - Reevaluation(s) Reevaluation #1: 09/22/17 20:23 I called in Augmentin 875 mg to [facility] pharmacy for the patient to take for his bronchitis for 10 days. 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 I advised him to return to the emergency room if his condition worsens. ED Medical Decision Making - Lab Data Result diagrams: 09/21/17 11:31 09/21/17 16:49 - EKG Data -: EKG Interpreted by Me EKG shows normal: sinus rhythm Rate: normal (86) - EKG Data When compared to previous EKG there are: previous EKG unavailable Interpretation: nonspecific ST-T wave milady - Radiology Data Radiology results: report reviewed, image reviewed - Medical Decision Making Chest pain. Bronchitis. Critical care attestation.: If time is entered above; I have spent that time in minutes in the direct care of this critically ill patient, excluding procedure time. ED Disposition Clinical Impression: Atypical chest pain Chest pain Qualifiers: Chest pain type: unspecified Qualified Code(s): R07.9 - Chest pain, unspecified Acute bronchitis Qualifiers: Bronchitis organism: unspecified organism Qualified Code(s): J20.9 - Acute bronchitis, unspecified Disposition: DC-01 TO HOME OR SELFCARE Is pt being admited?: No Does the pt Need Aspirin: No Condition: Stable Instructions: Chest Pain (ED), Acute Bronchitis (ED) Additional Instructions: Follow up with your regular doctor within 24 hours. Return to the ED if your condition worsens. Referrals: KAUSHIK MARK MD [Primary Care Provider] - 3-5 Days Forms: Accompanied Note
[2017-09-21] MEDS ORDERED: NACL 0.9% 1000 ML 1,000 ML IV ONE (14:53)
[2017-09-21 15:46] LABS: INR 0.95 (0.87-1.13)
[2017-09-21 15:47] LABS: Partial Thromboplastin Time 29.2 Sec. (24.2-36.6)
--- NOTE | 2017-09-21 15:55 | XRay Report ---
FINAL REPORT EXAM: XR CHEST ROUTINE 2V HISTORY: Chest Pain COMPARISON: None. TECHNIQUE: Frontal and lateral views of the chest. FINDINGS: The cardiomediastinal silhouette is normal in appearance. The lungs are clear without focal consolidation. There is no pleural effusion or pneumothorax. There is no acute soft tissue or osseous abnormality. IMPRESSION: No acute cardiopulmonary disease.
[2017-09-21] MEDS ORDERED: LEVAQUIN 750MG/150ML 750 MG/150 ML BAG IV ONE (16:33)
[2017-09-21 16:39] LABS: Amphetamine Screen,Urine PRESUMPTIVE NEGATIVE; Benzodiazepines Screen,Urine PRESUMPTIVE NEGATIVE; Cocaine Screen,Urine PRESUMPTIVE NEGATIVE; Methadone Screen,Urine PRESUMPTIVE NEGATIVE; Opiate Screen,Urine PRESUMPTIVE NEGATIVE
[2017-09-21 16:42] LABS: Bilirubin,Urine NEG (Negative); Blood,Urine NEG (Negative); Color,Urine Yellow (Yellow); Protein,Urine <15 mg/dL mg/dL (Negative); Sperm,Urine FEW /HPF (NP); Urobilinogen,Urine < 2.0 mg/dL (<2.0)
[2017-09-21 17:06] LABS: Cannabinoid Screen,Urine PRESUMPTIVE POSITIVE
[2017-09-21 17:27] LABS: BUN/Creatinine Ratio 17; Blood Urea Nitrogen 10 mg/dL (9-20); Calcium 8.9 mg/dL (8.4-10.2)
[2017-09-21 17:28] LABS: Hemolysis Index 23
[2017-09-21 21:21] VITALS: BP 159/80
== END 2017-09-21 21:21 | disposition home or self-care (01) ==
LOC: ED 10:22
DX: J20.9 Acute bronchitis, unspecified (principal); R07.89 Other chest pain; I10 Essential (primary) hypertension; E78.00 Pure hypercholesterolemia, unspecified; Z87.891 Personal history of nicotine dependence; Z88.6 Allergy status to analgesic agent; Z88.5 Allergy status to narcotic agent; Z91.041 Radiographic dye allergy status; Z79.899 Other long term (current) drug therapy
CPT/HCPCS: 36415; 71046; 80048; 80307; 81001; 82550; 83880; 84484; 85025; 85610; 85730; 93005; 93010; 96365; 99284; J1956; J7030

== ENCOUNTER 2020-01-06 07:44 | Observation (INO) | payer MEDICARE ==
[2020-01-06] MEDS ORDERED: ASPIRIN 325 MG TAB PO ONE (07:57)
--- NOTE | 2020-01-06 08:43 | XRay Report ---
CHEST 2 VIEWS, 01/06/2020 8:24 AM INDICATION: Chest pain COMPARISON: Chest radiograph, 08/04/2019 FINDINGS: Support devices: None. Heart: The cardiac silhouette is normal in size. Lungs/pleura: The lungs are well expanded and appear clear of focal airspace disease or significant p leural effusion. Additional findings: Minimal bony degenerative changes of the thoracic spine are noted. IMPRESSION: 1. No evidence of acute cardiopulmonary process. Signer Name: Fany Orellana MD Signed: 01/06/2020 8:38 AM Workstation Name: [id number]
[2020-01-06 09:16] LABS: BUN/Creatinine Ratio 14; Blood Urea Nitrogen 11 mg/dL (9-20); Calcium 9.7 mg/dL (8.4-10.2); Hemolysis Index 0
[2020-01-06 09:19] LABS: Hematocrit 24.1 % (35.5-45.6); Hemoglobin 7.3 gm/dl (11.8-15.2); Mean Corpuscular HGB Conc 30 % (32-34); Mean Corpuscular Volume 72 fl (84-94); Platelet Count 127 K/mm3 (140-440); Red Blood Count 3.34 M/mm3 (3.65-5.03)
--- NOTE | 2020-01-06 11:17 | Emergency Department Report ---
HPI - General Chief Complaint: Chest Pain Time Seen by Provider: 01/06/20 10:25 - HPI HPI: Room 3 The patient is a 64-year-old male presenting with a chief complaint of nausea and dyspnea on exertion. The patient states for the past 2 to 3 weeks he has had intermittent nausea he attributes to taking aspirin and dyspnea on exertion. Patient states whenever he walks or goes up stairs he gets completely exhausted. Patient also admits intermittent chest pain is been burning in nature for the past week. Patient states at times his entire body feels numb. Patient denies history of fever but admits an occasional cough. ED Past Medical Hx - Past Medical History Hx Hypertension: Yes Hx Heart Attack/AMI: Yes (Admit [place], postop angiography) Hx Deep Vein Thrombosis: Yes Hx COPD: Yes Additional medical history: ulcers/peptic ulcer disease. rhabdo, high cholesterol, boil, abscess - Surgical History Additional Surgical History: L4-L5 disc replacement - Family History Family history: no significant - Social History Smoking Status: Former Smoker (None x6 years) Substance Use Type: None (Denies illicit drug use), Alcohol (Occasional) - Medications Home Medications: Home Medications Medication Instructions Recorded Confirmed Last Taken Type Aspirin [Aspirin BABY CHEW TAB] 81 mg PO QDAY #30 tab.chew 08/06/19 Unknown Rx AtorvaSTATin [Lipitor] 80 mg PO QHS #60 tablet 08/06/19 Unknown Rx Clopidogrel [Plavix] 75 mg PO QDAY #30 tablet 08/06/19 Unknown Rx Famotidine [Pepcid] 20 mg PO BID #60 tablet 08/06/19 Unknown Rx Metoprolol [Lopressor TAB] 50 mg PO BID #60 tablet 08/06/19 Unknown Rx lisinopriL [Zestril TAB] 20 mg PO QDAY #30 08/06/19 Unknown Rx ED Review of Systems ROS: Stated complaint: CP/WEAKNESS/BLOOD CLOT IN LEG Other details as noted in HPI Constitutional: no symptoms reported Respiratory: no symptoms reported Endocrine: no symptoms reported Gastrointestinal: nausea Neurological: paresthesias Physical Exam - Physical Exam Vital Signs: Vital Signs 01/06/20 01/06/20 07:54 10:38 Temperature 98.9 F 97.4 F L Pulse Rate 76 81 Respiratory 20 16 Rate Blood Pressure 142/65 Blood Pressure 160/75 [Left] O2 Sat by Pulse 98 100 Oximetry Physical Exam: GENERAL: The patient is well-developed well-nourished male lying on stretcher not appearing to be in acute distress. [] HEENT: Normocephalic. Atraumatic. Extraocular motions are intact. Patient has moist mucous membranes. NECK: Supple. Trachea midline CHEST/LUNGS: Clear to auscultation. There is no respiratory distress noted. HEART/CARDIOVASCULAR: Regular. There is no tachycardia. There is no gallop rub or murmur. ABDOMEN: Abdomen is soft, nontender. Patient has normal bowel sounds. There is no abdominal distention. SKIN: There is no rash. There is no edema. There is no diaphoresis. NEURO: The patient is awake, alert, and oriented. The patient is cooperative. The patient has no focal neurologic deficits. The patient has normal speech MUSCULOSKELETAL: There is no evidence of acute injury. ED Course Vital Signs 01/06/20 01/06/20 07:54 10:38 Temperature 98.9 F 97.4 F L Pulse Rate 76 81 Respiratory 20 16 Rate Blood Pressure 142/65 Blood Pressure 160/75 [Left] O2 Sat by Pulse 98 100 Oximetry ED Medical Decision Making - Lab Data Result diagrams: 01/06/20 08:05 01/06/20 08:05 Laboratory Tests 01/06/20 01/06/20 01/06/20 08:05 08:05 08:05 WBC 6.0 RBC 3.34 L Hgb 7.3 L Hct 24.1 L MCV 72 L MCH 22 L MCHC 30 L RDW 18.0 H Plt Count 127 L Lymph % (Auto) [place]ular [place] % (Auto) Circular [place] Eos % (Auto) Circular [place] Baso % (Auto) [place]ular [place] Lymph # (Auto) Circular [place] # (Auto) Circular [place] Eos # (Auto) Circular [place] Baso # (Auto) [place]ular [place] Seg Neutrophils % Circular [place] Seg Neutrophils # Circular [place] Sodium 140 Potassium 4.6 Chloride 105.5 Carbon Dioxide 26 Anion Gap 13 BUN 11 Creatinine 0.8 Estimated GFR > 60 BUN/Creatinine Ratio 14 Glucose 106 H Calcium 9.7 Total Creatine Kinase Troponin T < 0.010 NT-Pro-B Natriuret Pep 922.7 H 01/06/20 01/06/20 08:05 11:12 WBC RBC Hgb Hct MCV MCH MCHC RDW Plt Count Lymph % (Auto) [place] % (Auto) Eos % (Auto) Baso % (Auto) Lymph # (Auto) Larue # (Auto) Eos # (Auto) Baso # (Auto) Seg Neutrophils % Seg Neutrophils # Sodium Potassium Chloride Carbon Dioxide Anion Gap BUN Creatinine Estimated GFR BUN/Creatinine Ratio Glucose Calcium Total Creatine Kinase 168 Troponin T < 0.010 NT-Pro-B Natriuret Pep - EKG Data -: EKG Interpreted by Me EKG shows normal: sinus rhythm Rate: normal - EKG Data When compared to previous EKG there are: no significant change Interpretation: unchanged when compared t (08/04/2019) - Radiology Data Radiology results: report reviewed (Chest x-ray), image reviewed (Chest x-ray) interpreted by me: Chest x-ray-no focal infiltrates, no pneumothorax. No foreign bodies [facility] [address] [place] [address] XRay Report Signed Patient: HALEY ULLOA MR#: [id number] : 1955 Acct:[id number] Age/Sex: 64 / M ADM Date: 01/06/20 Loc: ED Attending Dr: Ordering Physician: ED MD LEISA Date of Service: 01/06/20 Procedure(s): XR chest routine 2V Accession Number(s): [id number] cc: ED MD LEISA Fluoro Time In Minutes: CHEST 2 VIEWS, 01/06/2020 8:24 AM INDICATION: Chest pain COMPARISON: Chest radiograph, 08/04/2019 FINDINGS: Support devices: None. Heart: The cardiac silhouette is normal in size. Lungs/pleura: The lungs are well expanded and appear clear of focal airspace disease or significant pleural effusion. Additional findings: Minimal bony degenerative changes of the thoracic spine are noted. IMPRESSION: 1. No evidence of acute cardiopulmonary process. Signer Name: Fany Orellana MD Signed: 01/06/2020 8:38 AM Workstation Name: [id number] Transcribed By: EB Dictated By: Fany Orellana MD Electronically Authenticated By: Fany Orellana MD Signed Date/Time: 01/06/20837 DD/ 7 TD/TT: - Medical Decision Making Patient had cardiac catheterization performed 08/03/2019 which concluded: Acute atherothrombosis of the very distal small periapical LAD, successful PTCA with resumption of JUAN ANTONIO 2.5 flow. Medical management from here on out. Aspirin Plavix, heparin drip overnight. Normal left ventricular systolic performance, estimated ejection fraction of 55-60%. No evidence of aortic stenosis. Normal LVEDP - Differential Diagnosis CHF, symptomatic anemia, ACS, pericarditis, Critical care attestation.: If time is entered above; I have spent that time in minutes in the direct care of this critically ill patient, excluding procedure time. ED Disposition Clinical Impression: CHF (congestive heart failure), Chest pain Disposition: OP ADMIT IP TO THIS HOSP Is pt being admited?: Yes Does the pt Need Aspirin: No Condition: Fair Instructions: Chest Pain (ED) Referrals: PRIMARY CARE, [Primary Care Provider] - 3-5 Days Time of Disposition: 12:22 (Hospitalist paged (Dr. Garcias))
[2020-01-06] MEDS ORDERED: FUROSEMIDE 40 MG/4 ML INJ IV ONE (12:20)
--- NOTE | 2020-01-06 12:48 | History and Physical Report ---
History of Present Illness Chief complaint: It is hard for me to breathe History of present illness: 64 YO Male with HTN, ETOH Dependence, CAD, OK, COPD, PUD, Nicotine Dependence, HLD, Systolic CHF(EF 35%) presents to ED for evaluation. Patient states that he experienced shortness of breath over the past 2 weeks with persistently worsening symptoms over the past 2 to 3 days. Patient knowledges decreased exercise tolerance, dyspnea on exertion, dyspnea at rest, orthopnea, as well as paroxysmal nocturnal dyspnea. Patient transported to [facility] via private vehicle for further care and evaluation of the aforementioned symptoms.. Patient seen and evaluated in the emergency department. All lab and imaging studies r eviewed. Patient found to have clinical symptoms consistent with CHF decompensation. Cardiology team consulted in ED. Patient admitted to telemetry due to increased risk of further cardiac decompensation. Patient denies fever, chills, chest pain, palpitations, vomiting, syncope, unilateral leg swelling, prolonged travel/immobility, individual/family history of DVT/PE/bleeding/blood clotting disorder, skin rash, known ill contacts, known exposure to COVID-19. Prior admission on 08/03/2019 reviewed. All medication listed at time of admission has been reconciled. Advanced care planning con ducted in the emergency department. Past History Past Medical History: COPD, GERD, heart failure, hypertension, other (See HPI) Past Surgical History: Other (Spine surgery) Social history: single, smoking, alcohol abuse Family history: hypertension Medications and Allergies Allergies Allergy/AdvReac Type Severity Reaction Status Date / Time codeine Allergy Unknown Verified 01/06/20 07:53 Iodinated Contrast Media Allergy Hives Verified 01/06/20 07:53 NSAIDS (Non-Steroidal Allergy Unknown Verified 01/06/20 07:53 Anti-Inflamma Home Medications Medication Instructions Recorded Confirmed Last Taken Type Aspirin [Aspirin BABY CHEW TAB] 81 mg PO QDAY #30 tab.chew 08/06/19 01/06/20 Un known Rx AtorvaSTATin [Lipitor] 80 mg PO QHS #60 tablet 08/06/19 01/06/20 Unknown Rx Clopidogrel [Plavix] 75 mg PO QDAY #30 tablet 08/06/19 01/06/20 Unknown Rx Famotidine [Pepcid] 20 mg PO BID #60 tablet 08/06/19 01/06/20 Unknown Rx Metoprolol [Lopressor TAB] 50 mg PO BID #60 tablet 08/06/19 01/06/20 Unknown Rx lisinopriL [Zestril TAB] 20 mg PO QDAY #30 08/06/19 01/06/20 Unknown Rx Review of Systems Constitutional: no weight loss, no weight gain, no fever, no chills Ears, nose, mouth and throat: no ear pain, no ear discharge, no tinnitis, no nasal congestion Cardiovascular: orthopnea, shortness of breath, dyspnea on exertion, paroxysmal nocturnal dyspnea, decreased exercise tolerance, no chest pain, no rapid/irregular heart beat Gastrointestinal: no abdominal pain, no nausea, no vomiting, no diarrhea Genitourinary Male: no hematuria, no flank pain, no discharge, no urinary frequency, no urinary hesitancy Rectal: no pain, no incontinence, no bleeding Musculoskeletal: no neck stiffness, no neck pain, no shooting arm pain, no arm numbness/tingling Integumentary: no rash, no pruritis, no redness, no sores, no wounds Neurological: no head injury, no transient paralysis, no weakness, no parathesias, no seizures Psychiatric: no anxiety, no insomnia, no change in appetite, no suicidal ideation, no disorientation Endocrine: no cold intolerance, no heat intolerance, no polyphagia, no excessive thirst, no polydipsia, no polyuria, no nocturia Hematologic/Lymphatic: no easy bruising, no easy bleeding, no lymphedema Allergic/Immunologic: no urticaria, no allergic rhinitis, no persistent infections, no anaphylaxis Exam - Constitutional Vitals: Temp Pulse Resp BP Pulse Ox 97.4 F L 81 16 160/75 99 01/06/20 10:38 01/06/20 10:38 01/06/20 11:18 01/06/20 10:38 01/06/20 11:18 General appearance: Present: mild distress - EENT Eyes: Present: PERRL ENT: hearing intact, clear oral mucosa - Neck Neck: Present: supple, normal ROM - Respiratory Respiratory effort: normal Respiratory: bilateral: CTA - Cardiovascular Heart Sounds: Present: S1 & S2. Absent: rub, click - Extremities Extremities: pulses symmetrical, No edema Peripheral Pulses: within normal limits - Abdominal General gastrointestinal: Present: soft, non-tender, non-distended, normal bowel sounds Male genitourinary: Present: normal - Integumentary Integumentary: Present: clear, warm, dry - Musculoskeletal Musculoskeletal: gait normal, strength equal bilaterally - Psychiatric Psychiatric: appropriate mood/affect, intact judgment & insight - Neurologic Neurologic: CNII-XII intact, moves all extremities HEART Score - HEART Score Troponin: Troponin T < 0.010 ng/mL (0.00-0.029) 01/06/20 11:12 Results - Labs CBC & Chem 7: 01/06/20 08:05 01/06/20 08:05 Labs: Abnormal lab results 01/06/20 01/06/20 01/06/20 Range/Units 08:05 08:05 08:05 RBC 3.34 L (3.65-5.03) M/mm3 Hgb 7.3 L (11.8-15.2) gm/dl Hct 24.1 L (35.5-45.6) % MCV 72 L (84-94) fl MCH 22 L (28-32) pg MCHC 30 L (32-34) % RDW 18.0 H (13.2-15.2) % Plt Count 127 L (140-440) K/mm3 Glucose 106 H (75-100) mg/dL NT-Pro-B Natriuret Pep 922.7 H (0-900) pg/mL Assessment and Plan - Patient Problems (1) CHF (congestive heart failure) Current Visit: Yes Status: Acute Qualifiers: Heart failure type: systolic Heart failure chronicity: acute on chronic Qualified Code(s): I50.23 - Acute on chronic systolic (congestive) heart failure Plan to address problem: CHF protocol: Admit to telemetry, strict I/O, monitor urine output every shift, daily weight, afterload reduction, blood pressure control, cardiology team consulted (2) Hypertension Current Visit: Yes Status: Acute Qualifiers: Hypertension type: essential hypertension Qualified Code(s): I10 - Essential (primary) hypertension Plan to address problem: Monitor blood pressure every shift, continue medical management (3) Coronary artery disease Current Visit: Yes Status: Acute Plan to address problem: Risk factor reduction, smoking cessation, statin therapy, lipid panel, (4) Hyperlipidemia Current Visit: Yes Status: Acute Qualifiers: Hyperlipidemia type: mixed hyperlipidemia Qualified Code(s): E78.2 - Mixed hyperlipidemia Plan to address problem: Lipid panel, statin therapy, low-cholesterol diet, supportive care. (5) Alcohol dependence Current Visit: Yes Status: Acute Qualifiers: Substance use status: uncomplicated Qualified Code(s): F10.20 - Alcohol dependence, uncomplicated Plan to address problem: Thiamine, folic acid, multivitamin daily, CIWA protocol (6) Nicotine dependence Current Visit: Yes Status: Acute Qualifiers: Nicotine product type: cigarettes Substance use status: in withdrawal Qualified Code(s): F17.213 - Nicotine dependence, cigarettes, with withdrawal Plan to address problem: Smoking cessation counseling sling, supportive care, behavior change counseling, +15 minutes. (7) DVT prophylaxis Current Visit: Yes Status: Acute Plan to address problem: SCD to bilateral lower extremities while in bed, patient is ambulatory. (8) Advance care planning Current Visit: Yes Status: Acute Plan to address problem: Disease education conducted, patient is full code, prognosis discussed, patient knowledges understanding and agreement with care plan.
[2020-01-06] MEDS ORDERED: ACETAMINOPHEN 325 MG TAB PO PRN (12:50)
[2020-01-06] MEDS ORDERED: LISINOPRIL 20 MG TAB ONE (13:31)
[2020-01-06] MEDS ORDERED: FUROSEMIDE 40 MG/4 ML INJ ONE (13:31)
[2020-01-06] MEDS: METOPROLOL TARTRATE 50 MG TAB PO SCH ×3 (13:32→22:32)
[2020-01-06] MEDS ORDERED: METOPROLOL TARTRATE 50 MG TAB ONE (13:32)
[2020-01-06] MEDS: LISINOPRIL 20 MG TAB PO SCH ×2 (13:33→15:08)
[2020-01-06] MEDS: FUROSEMIDE 20 MG/2 ML INJ IV SCH (17:03)
[2020-01-06] MEDS: ONDANSETRON 4 MG/2 ML INJ IV PRN (17:42)
[2020-01-06] MEDS ORDERED: METOPROLOL TARTRATE 50 MG TAB PO SCH (22:00)
[2020-01-06] MEDS: FAMOTIDINE 20 MG TAB PO SCH (22:34)
[2020-01-07] MEDS: FUROSEMIDE 20 MG/2 ML INJ IV SCH ×2 (05:53→18:50)
[2020-01-07 08:21] LABS: BUN/Creatinine Ratio 12; Blood Urea Nitrogen 11 mg/dL (9-20); Calcium 9.3 mg/dL (8.4-10.2); Hemolysis Index 4
[2020-01-07] MEDS: CLOPIDOGREL 75 MG TAB PO SCH (09:50)
[2020-01-07] MEDS: ASPIRIN 81 MG TAB CHEW PO SCH (09:50)
[2020-01-07] MEDS: FAMOTIDINE 20 MG TAB PO SCH ×2 (09:50→21:20)
[2020-01-07] MEDS: LISINOPRIL 20 MG TAB PO SCH (09:50)
[2020-01-07] MEDS: METOPROLOL TARTRATE 50 MG TAB PO SCH ×2 (09:52→21:20)
[2020-01-07] MEDS ORDERED: LISINOPRIL 20 MG TAB PO SCH (10:00)
--- NOTE | 2020-01-07 13:59 | Consultation ---
History of Present Illness Consult date: 01/07/20 Requesting physician: ZACH NICOLE Consult reason: congestive heart failure History of present illness: The pt is a 64 YO male with a past medical history of CAD s/p PTCA, CMP, HTN, COPD, ETOH abuse, former tobacco use. He is followed in our office by Dr. Dimitrios Rosario. He presented with c/o progressively worsening SOB and orthopnea for 2-3 days prior to arrival and exertional chest pain for the past several weeks. Patient endorses decreased exercise tolerance, dyspnea on exertion, dyspnea at rest, orthopnea, as well as paroxysmal nocturnal dyspnea for the past several days. He states that he has been experiencing midsternal "burning" in his chest every time he exerts himself for the past several weeks. tte done 08/2019 showed EF 35-40%, apical dyskinesis. LHC done 08/03/2019 showed acute atherothrombosis of the very distal small periapical LAD, successful PTCA with resumption of JUAN ANTONIO 2.5 flow, EF 55-60%. Past History Past Medical History: COPD, GERD, heart failure, hypertension, other (See HPI) Past Surgical History: Other (Spine surgery) Social history: single, smoking, alcohol abuse Family history: hypertension Medications and Allergies Allergies Allergy/AdvReac Type Severity Reaction Status Date / Time codeine Allergy Unknown Verified 01/06/20 07:53 Iodinated Contrast Media Allergy Hives Verified 01/06/20 07:53 NSAIDS (Non-Steroidal Allergy Unknown Verified 01/06/20 07:53 Anti-Inflamma Home Medications Medication Instructions Recorded Confirmed Last Taken Type Aspirin [Aspirin BABY CHEW TAB] 81 mg PO QDAY #30 tab.chew 08/06/19 01/06/20 Unknown Rx AtorvaSTATin [Lipitor] 80 mg PO QHS #60 tablet 08/06/19 01/06/20 Unknown Rx Clopidogrel [Plavix] 75 mg PO QDAY #30 tablet 08/06/19 01/06/20 Unknown Rx Famotidine [Pepcid] 20 mg PO BID #60 tablet 08/06/19 01/06/20 Unknown Rx Metoprolol [Lopressor TAB] 50 mg PO BID #60 tablet 08/06/19 01/06/20 Unknown Rx lisinopriL [Zestril TAB] 20 mg PO QDAY #30 08/06/19 01/06/20 Unknown Rx Active Meds: Active Medications Acetaminophen (Tylenol) 650 mg PO Q4H PRN PRN Reason: Pain MILD(1-3)/Fever >100.5/ARBOLEDA Aspirin (Baby Aspirin) 81 mg PO QDAY [facility] Last Admin: 01/07/20 09:50 Dose: 81 mg Documented by: Atorvastatin Calcium (Lipitor) 80 mg PO QHS [facility] Last Admin: 01/06/20 22:33 Dose: 80 mg Documented by: Clopidogrel Bisulfate (Plavix) 75 mg PO QDAY [facility] Last Admin: 01/07/20 09:50 Dose: 75 mg Documented by: Famotidine (Pepcid) 20 mg PO BID [facility] Last Admin: 01/07/20 09:50 Dose: 20 mg Documented by: Furosemide (Lasix) 20 mg IV BID@0600,1800 [facility] Last Admin: 01/07/20 05:53 Dose: 20 mg Documented by: Lisinopril (Zestril) 20 mg PO QDAY [facility] Last Admin: 01/07/20 09:50 Dose: 20 mg Documented by: Metoprolol Tartrate (Metoprolol) 50 mg PO BID [facility] Last Admin: 01/07/20 09:52 Dose: 50 mg Documented by: Ondansetron HCl (Zofran) 4 mg IV Q8H PRN PRN Reason: Nausea And Vomiting Last Admin: 01/06/20 17:42 Dose: 4 mg Documented by: Sodium Chloride (Sodium Chloride Flush Syringe 10 Ml) 10 ml IV BID [facility] Last Admin: 01/07/20 09:51 Dose: 10 ml Documented by: Sodium Chloride (Sodium Chloride Flush Syringe 10 Ml) 10 ml IV PRN PRN PRN Reason: LINE FLUSH Review of Systems Constitutional: no weight loss, no weight gain, no fever, no chills, no sweats Ears, nose, mouth and throat: no ear pain, no nose pain, no sinus pressure, no sinus pain Cardiovascular: chest pain, orthopnea, shortness of breath, dyspnea on exertion, paroxysmal nocturnal dyspnea, decreased exercise tolerance, no palpitations, no rapid/irregular heart beat, no edema, no syncope, no lightheadedness, no leg edema Respiratory: shortness of breath, dyspnea on exertion, no cough, no congestion, no wheezing, no pain on inspiration Gastrointestinal: no abdominal pain, no nausea, no vomiting, no diarrhea, no constipation, no change in bowel habits Genitourinary Male: no dysuria, no hematuria, no flank pain, no discharge, no urinary frequency, no urinary hesitancy Musculoskeletal: no neck stiffness, no neck pain, no shooting arm pain, no arm numbness/tingling, no low back pain, no shooting leg pain Integumentary: no rash, no pruritis, no redness, no sores, no wounds Neurological: no head injury, no paralysis, no weakness, no parathesias, no numbness, no tingling, no seizures, no syncope Psychiatric: no anxiety Endocrine: no cold intolerance, no heat intolerance Hematologic/Lymphatic: no easy bruising, no easy bleeding Allergic/Immunologic: no urticaria Physical Examination Vital Signs Temp Pulse Resp BP Pulse Ox 98.9 F 76 20 142/65 98 01/06/20 07:54 01/06/20 07:54 01/06/20 07:54 01/06/20 07:54 01/06/20 07:54 General appearance: no acute distress HEENT: Positive: PERRL, Normocephaly, Mucus Membranes Moist Neck: Positive: neck supple, trachea midline Cardiac: Positive: Reg Rate and Rhythm, S1/S2 Lungs: Positive: Decreased Breath Sounds Neuro: Positive: Grossly Intact Abdomen: Negative: Tender Skin: Negative: Rash Musculoskeletal: No Pain Extremities: Absent: edema Results 01/06/20 08:05 01/07/20 07:30 Comprehensive Metabolic Panel 01/07/20 Range/Units 07:30 Sodium 136 L (137-145) mmol/L Potassium 3.8 (3.6-5.0) mmol/L Chloride 99.4 (98-107) mmol/L Carbon Dioxide 28 (22-30) mmol/L BUN 11 (9-20) mg/dL Creatinine 0.9 (0.8-1.3) mg/dL Glucose 106 H (75-100) mg/dL Calcium 9.3 (8.4-10.2) mg/dL - Imaging and Cardiology Echo: report reviewed (08/2019 showed EF 35-40%, apical dyskinesis. ) Cardiac cath: report reviewed (08/03/2019 showed acute atherothrombosis of the very distal small periapical LAD, successful PTCA with resumption of JUAN ANTONIO 2.5 flow, EF 55-60%. ) EKG: report reviewed, image reviewed EKG interpretations - Telemetry EKG Rhythm: Sinus Rhythm - EKG Sinus rhythms and dysrhythmias: sinus rhythm Assessment and Plan Tra negative for AMI. ECG with NSR, no significant change from prior ECGs. Agree with present cardiac management, including GDMT and IV lasix. Pt is noted to be significantly anemic - recommend further eval/management per primary. F/u echo. Plan for lexiscan MPI stress test in AM. NPO after MN. The patient has been seen in conjunction with Dr. Carpio who agrees with the assessment and plan of care. - Patient Problems (1) Chest pain Current Visit: Yes Status: Acute Qualifiers: Chest pain type: unspecified Qualified Code(s): R07.9 - Chest pain, unspecified (2) Acute HFrEF (heart failure with reduced ejection fraction) Current Visit: Yes Status: Acute (3) Cardiomyopathy Current Visit: Yes Status: Chronic (4) Coronary artery disease Current Visit: Yes Status: Chronic (5) History of PTCA Current Visit: Yes Status: Chronic (6) Hypertension Current Visit: Yes Status: Chronic Qualifiers: Hypertension type: essential hypertension Qualified Code(s): I10 - Essential (primary) hypertension (7) COPD (chronic obstructive pulmonary disease) Current Visit: Yes Status: Chronic (8) Alcohol use Current Visit: Yes Status: Chronic (9) Former tobacco use Current Visit: Yes Status: Chronic (10) Anemia Current Visit: Yes Status: Acute (11) Thrombocytopenia Current Visit: Yes Status: Chronic
[2020-01-07 14:59] LABS: Iron 10 ug/dL (49-181)
[2020-01-07 15:00] LABS: Total Iron Binding Capacity 302 mcg/dL (250-450)
--- NOTE | 2020-01-07 15:38 | Progress Note ---
Assessment and Plan (1) CHF (congestive heart failure) Current Visit: Yes Status: Acute Qualifiers: Heart failure type: systolic Heart failure chronicity: acute on chronic Qualified Code(s): I50.23 - Acute on chronic systolic (congestive) heart failure Plan to address problem: CHF protocol: Admit to telemetry, strict I/O, monitor urine output every shift, daily weight, afterload reduction, blood pressure control, cardiology team consulted (2) Hypertension Current Visit: Yes Status: Acute Qualifiers: Hypertension type: essential hypertension Qualified Code(s): I10 - Essential (primary) hypertension Plan to address problem: Monitor blood pressure every shift, continue medical management (3) Coronary artery disease Current Visit: Yes Status: Acute Plan to address problem: Risk factor reduction, smoking cessation, statin therapy, lipid panel, (4) Hyperlipidemia Current Visit: Yes Status: Acute Qualifiers: Hyperlipidemia type: mixed hyperlipidemia Qualified Code(s): E78.2 - Mixed hyperlipidemia Plan to address problem: Lipid panel, statin therapy, low-cholesterol diet, supportive care. (5) Alcohol dependence Current Visit: Yes Status: Acute Qualifiers: Substance use status: uncomplicated Qualified Code(s): F10.20 - Alcohol dependence, uncomplicated Plan to address problem: Thiamine, folic acid, multivitamin daily, CIWA protocol (6) Nicotine dependence Current Visit: Yes Status: Acute Qualifiers: Nicotine product type: cigarettes Substance use status: in withdrawal Qualified Code(s): F17.213 - Nicotine dependence, cigarettes, with withdrawal Plan to address problem: Smoking cessation counseling sling, supportive care, behavior change counseling, +15 minutes. (7) DVT prophylaxis Current Visit: Yes Status: Acute Plan to address problem: SCD to bilateral lower extremities while in bed, patient is ambulatory. (8) Advance care planning Current Visit: Yes Status: Acute Plan to address problem: Disease education conducted, patient is full code, prognosis discussed, patient knowledges understanding and agreement with care plan. Subjective Date of service: 01/07/20 Objective - Constitutional Vitals: Vital Signs - 12hr 01/07/20 01/07/20 01/07/20 03:49 07:19 09:50 Temperature 98.1 F 98.1 F Pulse Rate 78 74 74 Respiratory 16 20 Rate Blood Pressure 112/66 111/60 111/60 O2 Sat by Pulse 100 100 Oximetry 01/07/20 01/07/20 01/07/20 09:52 10:00 11:45 Temperature 98.3 F Pulse Rate 74 79 82 Respiratory 20 Rate Blood Pressure 111/60 121/57 O2 Sat by Pulse 100 Oximetry - Labs CBC & Chem 7: 01/08/20 04:49 01/08/20 04:49 Labs: Abnormal lab results 01/07/20 01/07/20 01/07/20 Range/Units 07:30 14:10 14:10 Sodium 136 L (137-145) mmol/L Glucose 106 H (75-100) mg/dL Iron 10 L (49-181) ug/dL Ferritin 7.1 L (30.0-300.0) ng/mL HEART Score - HEART Score Troponin: Troponin T < 0.010 ng/mL (0.00-0.029) 01/06/20 15:18
[2020-01-07] MEDS: ONDANSETRON 4 MG/2 ML INJ IV PRN (23:24)
[2020-01-08 05:39] LABS: Hematocrit 26.7 % (35.5-45.6); Hemoglobin 8.1 gm/dl (11.8-15.2); Mean Corpuscular HGB Conc 30 % (32-34); Mean Corpuscular Volume 72 fl (84-94); Platelet Count 125 K/mm3 (140-440); Red Blood Count 3.73 M/mm3 (3.65-5.03); Red Cell Distribution Width 18.9 % (13.2-15.2)
[2020-01-08 05:48] LABS: INR 1.1 (0.87-1.13)
[2020-01-08 05:56] LABS: Alanine Aminotransferase 19 units/L (7-56); Albumin 3.7 g/dL (3.9-5); BUN/Creatinine Ratio 12; Blood Urea Nitrogen 12 mg/dL (9-20); Calcium 9.5 mg/dL (8.4-10.2); Hemolysis Index 0
[2020-01-08] MEDS: FUROSEMIDE 20 MG/2 ML INJ IV SCH (06:23)
[2020-01-08] MEDS ORDERED: REGADENOSON 0.4 MG/5 ML INJ IV ONE (06:51)
[2020-01-08] MEDS ORDERED: FERROUS GLUCONATE 324 MG TAB PO SCH (10:00)
[2020-01-08] MEDS: CLOPIDOGREL 75 MG TAB PO SCH (13:12)
[2020-01-08] MEDS: ASPIRIN 81 MG TAB CHEW PO SCH (13:12)
[2020-01-08] MEDS: FAMOTIDINE 20 MG TAB PO SCH (13:12)
[2020-01-08] MEDS: LISINOPRIL 20 MG TAB PO SCH (13:12)
[2020-01-08] MEDS: METOPROLOL TARTRATE 50 MG TAB PO SCH (13:12)
[2020-01-08 13:21] VITALS: BP 125/72
--- NOTE | 2020-01-08 13:52 | Progress Note ---
Assessment and Plan Tra negative for AMI. ECG with NSR, no significant change from prior ECGs. No current c/o chest pain. S/p lexiscan MPI stress test today which showed fixed defects, negative for ischemia. tte pending. Pt appears to be nearing/at euvolemia. Convert IV lasix to PO lasix 40mg daily. Cont all other present cardiac management. Anemia w/u in progress per primary team. Currently stable cardiac status. Pt may discharge from cardiology standpoint. Follow-up in telehealth appt with Dr. Dimitrios Rosario on 01/22/2020 @ 3:30PM. The patient has been seen in conjunction with Dr. Carpio who agrees with the assessment and plan of care. - Patient Problems (1) Chest pain Current Visit: Yes Status: Resolved Qualifiers: Chest pain type: unspecified Qualified Code(s): R07.9 - Chest pain, unspecified (2) Acute HFrEF (heart failure with reduced ejection fraction) Current Visit: Yes Status: Acute (3) Cardiomyopathy Current Visit: Yes Status: Chronic (4) Coronary artery disease Current Visit: Yes Status: Chronic (5) History of PTCA Current Visit: Yes Status: Chronic (6) Hypertension Current Visit: Yes Status: Chronic Qualifiers: Hypertension type: essential hypertension Qualified Code(s): I10 - Essential (primary) hypertension (7) COPD (chronic obstructive pulmonary disease) Current Visit: Yes Status: Chronic (8) Alcohol use Current Visit: Yes Status: Chronic (9) Former tobacco use Current Visit: Yes Status: Chronic (10) Anemia Current Visit: Yes Status: Acute (11) Thrombocytopenia Current Visit: Yes Status: Chronic Subjective Date of service: 01/08/20 Principal diagnosis: HF; cp Interval history: pt for stress test, no current complaints. in SR on tele with [employer] [facility]. Objective Last Vital Signs Temp 97.3 F L 01/08/20 12:44 Pulse 74 01/08/20 13:12 Resp 20 01/08/20 08:04 BP 125/72 01/08/20 13:12 Pulse Ox 100 01/08/20 12:44 - Physical Examination General: No Apparent Distress HEENT: Positive: PERRL, Normocephaly, Mucus Membranes Moist Neck: Positive: neck supple, trachea midline Cardiac: Positive: Reg Rate and Rhythm, S1/S2 Lungs: Positive: Decreased Breath Sounds Neuro: Positive: Grossly Intact Abdomen: Negative: Tender Skin: Negative: Rash Musculoskeletal: No Pain Extremities: Absent: edema - Labs and Meds Cardiac Enzymes 01/08/20 Range/Units 04:49 AST 26 (5-40) units/L Coagulation 01/08/20 Range/Units 04:49 PT 14.4 (12.2-14.9) Sec. INR 1.10 (0.87-1.13) CBC 01/08/20 Range/Units 04:49 WBC 6.0 (4.5-11.0) K/mm3 RBC 3.73 (3.65-5.03) M/mm3 Hgb 8.1 L (11.8-15.2) gm/dl Hct 26.7 L (35.5-45.6) % Plt Count 125 L (140-440) K/mm3 Comprehensive Metabolic Panel 01/08/20 Range/Units 04:49 Sodium 137 (137-145) mmol/L Potassium 3.9 (3.6-5.0) mmol/L Chloride 98.3 (98-107) mmol/L Carbon Dioxide 30 (22-30) mmol/L BUN 12 (9-20) mg/dL Creatinine 1.0 (0.8-1.3) mg/dL Glucose 102 H (75-100) mg/dL Calcium 9.5 (8.4-10.2) mg/dL AST 26 (5-40) units/L ALT 19 (7-56) units/L Alkaline Phosphatase 47 (35-129) units/L Total Protein 6.9 (6.3-8.2) g/dL Albumin 3.7 L (3.9-5) g/dL - Imaging and Cardiology EKG: report reviewed, image reviewed Echo: report reviewed (08/2019 showed EF 35-40%, apical dyskinesis. ) Cardiac cath: report reviewed (08/03/2019 showed acute atherothrombosis of the very distal small periapical LAD, successful PTCA with resumption of JUAN ANTONIO 2.5 flow, EF 55-60%. ) - EKG Sinus rhythms and dysrhythmias: sinus rhythm
--- NOTE | 2020-01-08 15:05 | Discharge Summary ---
Providers - Providers Date of Admission: 01/06/20 13:11 Date of discharge: 01/08/20 Attending physician: CASTRO LEVY 01/06/20 12:50 Consult to Physician [CONS] Routine Comment: Consulting Provider: ESTELLE AGUILAR Physician Instructions: Reason For Exam: chf Primary care physician: BUSINESS PERFORMANCE SPECIALIST Hospitalization Condition: Fair Exam - Constitutional Vitals: Temp Pulse Resp BP Pulse Ox 97.3 F L 74 20 125/72 100 01/08/20 12:44 01/08/20 13:12 01/08/20 08:04 01/08/20 13:12 01/08/20 12:44 Plan Activity: fall precautions Weight Bearing Status: Non-Weight Bearing Diet: low fat, low salt Special Instructions: restrict fluid intake to (1.5L per day) Follow up with: PRIMARY CARE, [Primary Care Provider] - 3-5 Days Prescriptions: AtorvaSTATin [Lipitor] 80 mg PO QHS #60 tablet Ferrous Gluconate [Fergon 325 MG tab] 324 mg PO QDAY #30 tablet Furosemide [Lasix TAB] 40 mg PO QDAY #30 tablet
[2020-01-09] MEDS ORDERED: FUROSEMIDE 40 MG TAB PO SCH (10:00)
--- NOTE | 2020-01-09 22:53 | Treadmill Report ---
CARDIAC NUCLEAR PERFUSION STUDY REASON FOR STUDY: Chest pain. READING PHYSICIAN: Dr. Fernandez. IMAGING PROTOCOL: The patient received 10 mCi of Technetium 99m Tetrofosmin for resting image and 28 mCi of Technetium 99m Tetrofosmin for stress imaging. The imaging for the whole procedure was completed 30-90 minutes following the initial injection of Technetium 99m Tetrofosmin. The SPECT imaging in the 180 degree arc was performed in the right anterior oblique projection. Computerized reconstruction of the images was performed for analysis. IMAGING RESULTS: Normal cavity size from stress to rest. Normal distribution of radionuclide in the anterior, inferior, septal, lateral region. There is a small mild fixed apical defect seen both stress and rest with gated SPECT, EF 43% with mild global hypokinesis. The patient infused Lexiscan. SUMMARY: 1. Negative Lexiscan EKG. 2. No significant myocardial ischemia with a small mild fixed apical defect noted with gated SPECT, EF 43%. JOB# [id number] BRYAN/LEW
== END 2020-01-08 16:37 | disposition home or self-care (01) ==
LOC: ED 07:44 → INTOOBSV 13:11 → 4A 13:11
PROVIDERS: ADMIT Internal Medicine; ATTEND Internal Medicine
DX: I11.0 Hypertensive heart disease with heart failure (principal); I50.21 Acute systolic (congestive) heart failure; I25.10 Atherosclerotic heart disease of native coronary artery without angina pectoris; I25.2 Old myocardial infarction; J44.9 Chronic obstructive pulmonary disease, unspecified; K27.9 Peptic ulcer, site unspecified, unspecified as acute or chronic, without hemorrhage or perforation; I42.9 Cardiomyopathy, unspecified; D64.9 Anemia, unspecified; D69.6 Thrombocytopenia, unspecified; E78.5 Hyperlipidemia, unspecified; F10.20 Alcohol dependence, uncomplicated; F17.213 Nicotine dependence, cigarettes, with withdrawal; Z98.890 Other specified postprocedural states; Z79.82 Long term (current) use of aspirin
CPT/HCPCS: 36415; 71046; 78452; 80048; 80053; 82550; 82728; 83550; 83880; 84484; 85025; 85027; 85610; 87641; 93005; 93017; 93306; 96374; 96375; 96376; 99285; A9270; A9502; G0378; J1940; J2405; J2785

== ENCOUNTER 2020-03-18 06:48 | Day surgery (SDC) | payer MEDICARE ==
[2020-03-18 07:36] LABS: Hematocrit 37.6 % (35.5-45.6); Hemoglobin 11.7 gm/dl (11.8-15.2); Mean Corpuscular HGB Conc 31 % (32-34); Mean Corpuscular Volume 85 fl (84-94); Red Blood Count 4.42 M/mm3 (3.65-5.03)
[2020-03-18] MEDS ORDERED: diphenhydrAMINE 50 MG/ML VIAL IV ONE (07:40)
[2020-03-18] MEDS ORDERED: FAMOTIDINE 20 MG/2 ML INJ IV ONE ×2 (07:40→07:41)
[2020-03-18] MEDS ORDERED: diphenhydrAMINE 50 MG/ML VIAL ONE (07:41)
[2020-03-18] MEDS ORDERED: methylPREDNISolone Sod Succinate 125 MG/2 ML INJ ONE (07:41)
[2020-03-18 07:43] LABS: INR 1.01 (0.87-1.13); Red Cell Distribution Width 20.2 % (13.2-15.2)
[2020-03-18 07:44] LABS: Partial Thromboplastin Time 29.6 Sec. (24.2-36.6)
[2020-03-18] MEDS: SODIUM CHLORIDE 0.9% 500 ML 500 ML IV SCH ×2 (07:44→07:52)
[2020-03-18] MEDS ORDERED: methylPREDNISolone Sod Succinate 125 MG/2 ML INJ IV NR (08:00)
[2020-03-18] MEDS ORDERED: HEPARIN/NS 5000 UNIT/500ML 1,000 ML IR ONE (08:02)
[2020-03-18] MEDS ORDERED: CLOPIDOGREL 75 MG TAB ONE (08:15)
[2020-03-18] MEDS ORDERED: CLOPIDOGREL 75 MG TAB PO ONE (08:16)
[2020-03-18 08:32] LABS: BUN/Creatinine Ratio 9; Blood Urea Nitrogen 9 mg/dL (9-20)
[2020-03-18 08:33] LABS: Calcium 9.5 mg/dL (8.4-10.2); Hemolysis Index 1
[2020-03-18] MEDS: MIDAZOLAM 2 MG/2 ML INJ ONE ×2 (08:46→08:57)
[2020-03-18] MEDS: fentaNYL 100 MCG/2 ML INJ ONE ×2 (08:46→08:57)
[2020-03-18 08:47] LABS: Anisocytosis 1+; Large Platelets Few; Platelet Count 113 K/mm3 (140-440); Platelet Estimate Consistent w Auto; Total Cells Counted 100
[2020-03-18] MEDS: LIDOCAINE (2%) 20 MG/1 ML VIAL 20 ML MDV INFILTRATI ONE ×2 (08:47→08:58)
[2020-03-18] MEDS: NITROGLYCERIN SYRINGE 3 ML ONE ×2 (08:48→09:04)
[2020-03-18] MEDS: HEPARIN 10,000 UNITS/10 ML VIAL ONE ×2 (08:48→09:04)
[2020-03-18] MEDS: VERAPAMIL 5 MG/2 ML INJ ONE ×2 (08:48→09:04)
--- NOTE | 2020-03-18 10:06 | Cardiac Catherization Report ---
PERIPHERAL ANGIOGRAPHY REFERRING PHYSICIAN: Misha Rosario MD INDICATION FOR PROCEDURE: The patient is a very pleasant 64-year-old -[place] gentleman who presented to [facility] with a STEMI in August of this year, found to have acute atherothrombosis of distal LAD, thereafter, found to have a severe peripheral vascular disease with abnormal vascular ultrasound. He is referred here for peripheral angiography to further assess lower extremity disease. He has significant claudication and has been started on Pletal. PROCEDURE IN DETAIL: The patient was brought to mobile home [facility] in a postabsorptive state, prepped and draped in sterile fashion, 8 mL of 2% lidocaine used to anesthetize the left wrist. A standard 6-Syrian sheath was used to cannulate the left radial artery via modified Seldinger technique. We used a pigtail catheter. Root aortography was performed with DSA power injection. Next, the pigtail catheter was moved distally to the distal aorta. Distal aortography with computerized runoff all the way to the feet was then performed. Next, selective third order left subclavian angiography was performed with pullback. Next, the catheter was removed from the body, sheath removed. Manual pressure was used for hemostasis. No complications. DATA: Aortic pressure is 130/60. The patient remained in normal sinus rhythm throughout the procedure. ANATOMY: Aorta with mild atheroma. No aneurysm. Renal arteries are patent. Proximal left common iliac artery is heavily calcified, but appears to be patent. Right common iliac is patent. 20% right external iliac. Bilateral common femorals are patent. Bilateral SFAs with 25% stenosis in the mid segment calcified, but patent. Bilateral popliteals are patent. Infrapopliteal disease is noted bilaterally. On the right, there appears to be 2-vessel runoff. On the left, there is 1-vessel runoff, but severe small vessel disease with slow flow is noted infrapopliteally bilaterally. I directly supervised the administration of moderate sedation with fentanyl and Versed from 9:00 a.m. to 9:28 a.m. No immediate complications identified. CONCLUSIONS: 1. Mild diffuse aortic atheroma. 2. Patent renals bilaterally. 3. Calcified proximal left common iliac artery without significant obstruction on pullback. 4. Mild nonobstructive disease, bilateral common iliac and bilateral superficial femoral without obstructive disease noted. 5. Moderate severe infrapopliteal disease bilaterally with slow 1-vessel runoff, small vessel disease. Continue medical management. Add Pletal. Smoke cessation. Aggressive risk factor modification. Results of procedures discussed at length with the patient. All questions and concerns addressed. Standard radial care. Follow up with me in the office. JOB# [id number] SBM/NTS
--- NOTE | 2020-03-18 11:10 | Short Stay Summary ---
Short Stay Documentation Date of service: 03/18/20 - History H&P: obtained from office - Allergies and Medications Current Medications: Allergies codeine Allergy (Verified 01/06/20 07:53) Unknown Iodinated Contrast Media Allergy (Verified 01/06/20 07:53) Hives NSAIDS (Non-Steroidal Anti-Inflamma Allergy (Verified 01/06/20 07:53) Unknown Home Medications Medication Instructions Recorded Confirmed Last Taken Type Clopidogrel [Plavix] 75 mg PO QDAY #30 tablet 08/06/19 03/18/20 03/17/20 Rx 75 mg Metoprolol [Lopressor TAB] 50 mg PO BID #60 tablet 08/06/19 03/18/20 03/17/20 Rx 50 mg lisinopriL [Zestril TAB] 20 mg PO QDAY #30 08/06/19 03/18/20 03/17/20 Rx 20 mg AtorvaSTATin [Lipitor] 80 mg PO QHS #60 tablet 01/08/20 03/18/20 03/17/20 Rx 80 mg Ferrous Gluconate [Fergon 325 MG 324 mg PO QDAY #30 tablet 01/08/20 03/18/20 03/17/20 Rx tab] 324 mg Furosemide [Lasix TAB] 40 mg PO QDAY #30 tablet 01/08/20 03/18/20 03/17/20 Rx 40 mg Active Medications Sodium Chloride (Nacl 0.9% 500 Ml) 500 mls @ 50 mls/hr IV DIRECT JOANNA Last Admin: 03/18/20 07:52 Dose: 50 mls/hr Documented by: Methylprednisolone Sodium Succinate (Methylprednisolone Sod Succinate 125 Mg/2 Ml Inj) 125 mg IV PREOP NR Stop: 03/18/20 13:00 Last Admin: 03/18/20 07:53 Dose: 125 mg Documented by: - Brief post op/procedure progress note Date of procedure: 03/18/20 Pre-op diagnosis: PVD Post-op diagnosis: same Procedure: peripheral angiogram - see dictated cath report Anesthesia: local Estimated blood loss: none Condition: stable - Disposition Condition at discharge: Good Disposition: [id number] TO HOME OR SELFCARE - Discharge Diagnoses (1) PVD (peripheral vascular disease) Status: Chronic (2) CAD (coronary artery disease) Status: Chronic (3) Hypertension Status: Chronic Qualifiers: Short Stay Discharge Plan Activity: advance as tolerated Diet: low fat, low cholesterol, low salt Wound: open to air, keep clean and dry, per your surgeon's advice Follow up with: KAUSHIK MARK MD [Primary Care Provider] - 7 Days FATUMA MURRAY MD [Staff Physician] - 7 Days ([place] office 04/22/2020 @ 2:15PM) Prescriptions: cilostazoL [Pletal] 50 mg PO BID #180 tablet
[2020-03-18 12:38] VITALS: BP 131/62
== END 2020-03-18 13:55 | disposition home or self-care (01) ==
LOC: CATHLABREC 06:48
PROVIDERS: ATTEND Internal Medicine
DX: I77.9 Disorder of arteries and arterioles, unspecified (principal); I70.0 Atherosclerosis of aorta; I70.8 Atherosclerosis of other arteries; J43.9 Emphysema, unspecified; F10.239 Alcohol dependence with withdrawal, unspecified; I25.2 Old myocardial infarction; I25.10 Atherosclerotic heart disease of native coronary artery without angina pectoris; G93.40 Encephalopathy, unspecified; E78.5 Hyperlipidemia, unspecified; I11.0 Hypertensive heart disease with heart failure; I50.9 Heart failure, unspecified; K21.9 Gastro-esophageal reflux disease without esophagitis; Z88.5 Allergy status to narcotic agent; Z91.041 Radiographic dye allergy status; Z88.8 Allergy status to other drugs, medicaments and biological substances; Z79.899 Other long term (current) drug therapy; Z87.891 Personal history of nicotine dependence; Z87.01 Personal history of pneumonia (recurrent); Z98.61 Coronary angioplasty status; Z98.890 Other specified postprocedural states; Z98.42 Cataract extraction status, left eye; Z82.49 Family history of ischemic heart disease and other diseases of the circulatory system
CPT/HCPCS: 36225; 36415; 75625; 75716; 80048; 85007; 85025; 85610; 85730; 99156; 99157; C1769; J1200; J1644; J2250; J2930; J3010; J7040; 36246; 93567; 96374; 96375; Q9967